=== PATIENT | female | born 1995 | race Caucasian/White ===

== ENCOUNTER → 2017-09-05 07:07 | Outpatient (CLI) | payer OTHER, SELFPAY ==
[2017-09-05 10:37] LABS: Absolute Lymphocyte Count 2.03 X10^3/ul (0.83-4.51); Absolute Neutrophil Count 3.4 X10^3/uL (2.0-7.7); Basophil# 0.02 X10^3/uL; Basophil% 0.3 % (0-1); Eosinophils% 1.6 % (0-5); Hematocrit 41.5 % (37-47); Hemoglobin 13.9 g/dl (12.0-15.0); Lymphocyte # 2.03 X10^3/ul (4.0); Lymphocyte % 32.6 % (19-41); Mean Corp Hgb Conc 33.5 g/gl (32-36); Mean Corpuscular Hgb 27.8 pg (27.0-32.0); Mean Platelet Vol. 9.6 fl (6.2-12.0); Monocyte# 0.68 X10^3/uL; Monocyte% 10.9 % (0-10); Neutrophil % 54.6 % (47-70); Platelet Count 314 K/mm3 (150-450); RBC Distribution Width CV 13.6 % (11.6-14.6); RBC Distribution Width SD 40.9 fl (35.1-43.9); White Blood Count 6.2 K/mm3 (4.4-11.0)
[2017-09-05 10:38] LABS: Erythrocyte Sedimentation Rate 4 mm/hr (0-20)
[2017-09-05 10:44] LABS: POSITIVE COUNT NO; POSITIVE DIFFERENTIAL NO; POSITIVE MORPHOLOGY NO
[2017-09-05 10:51] LABS: ALB/GLOB Ratio 1.2 RATIO (0.9-2.4); AST(SGOT) 14 U/L (15-37); Alanine Aminotransfer ALT/SGPT 20 U/L (13-56); Albumin, Serum 4.1 g/dL (3.2-5.0); Alkaline Phosphatase 21 U/L (45-117); Anion Gap 9 (5-15); BUN 9 mg/dL (7-18); BUN/Creat Ratio 12.3 RATIO (10-20); Chloride 107 mmol/L (98-107); Creatinine, Serum 0.73 mg/dL (0.55-1.02); EST Glomerular Filtration Rate 103 mL/min (>60); Est Glom Filt Rate - Afr Amer 125 mL/min (>60); Ferritin 32 ng/mL (8-252); Globulin 3.5 g/dL (2.2-4.2); Glucose 74 mg/dL (74-106); Iron Binding Capacity,Total 328 ug/dL (250-450); Potassium 3.7 mmol/L (3.5-5.1); Protein, Total 7.6 g/dL (6.4-8.2); Sodium Level 143 mmol/L (136-145); T4 Free Direct 1.12 ng/dL (0.76-1.46); Thyroid Stim Hormone (TSH) 1.62 uIU/mL (0.358-3.74)
[2017-09-06 10:05] LABS: Thyroid Peroxidase AB 13 IU/mL (0-34)
== END ==
PROVIDERS: Family Provider Family Medicine; PCP Family Medicine; Visit Provider Internal Medicine Endocrinology, Diabetes & Metabolism
DX: E04.9 Nontoxic goiter, unspecified (principal); E61.1 Iron deficiency
CPT/HCPCS: 36415; 80053; 82728; 83550; 84439; 84443; 84481; 85025; 85652; 86376

== ENCOUNTER → 2017-10-16 17:57 | Outpatient (CLI) | payer OTHER, SELFPAY ==
[2017-10-16 21:11] LABS: Chlamydia Trachomatis by PCR Negative (Negative); Neisserai gonorrhoeae by PCR Negative (Negative); Probe Check PASS; Sample Adequacy Control PASS; Specimen Processing Control PASS
[2017-10-23 14:58] LABS: HPV Reflexed? NOT INDICATED
== END ==
PROVIDERS: Visit Provider Nurse Practitioner Women's Health
DX: Z11.3 Encounter for screening for infections with a predominantly sexual mode of transmission (principal); Z12.4 Encounter for screening for malignant neoplasm of cervix
CPT/HCPCS: 87491; 87591; 88175; G0145

== ENCOUNTER → 2017-12-03 15:08 | Outpatient (CLI) | payer OTHER, SELFPAY | PROVIDERS: Family Provider Family Medicine; PCP Family Medicine; Visit Provider Nurse Practitioner Women's Health | DX: N89.8 Other specified noninflammatory disorders of vagina (principal) | CPT/HCPCS: 87070; 87077; 87205 ==

== ENCOUNTER → 2018-05-27 15:05 | Outpatient (CLI) | payer OTHER, SELFPAY ==
[2017-12-12 10:03] VITALS: BMI 31.4
--- NOTE | 2018-05-27 15:23 | CT_ITS ---
STUDY: CT MAXILLOFACIAL SINUSES REASON FOR EXAM: Female, 22 years old. Right-sided numbness/tingling RADIATION DOSAGE (If Supplied By Facility): CTDIvol = ( 33.06 ) mGy, DLP = ( 837.98 ) mGycm TECHNIQUE: The patient was scanned in a multi detector CT scanner. High resolution axial imaging was performed without the administration of intravenous contrast material. Sagittal and coronal images were reconstructed. Individualized dose optimization techniques were used for this CT. COMPARISON: None. FINDINGS: FRONTAL SINUSES: Normal aeration, without mucosal inflammatory disease. ETHMOIDAL SINUSES: Normal aeration, without mucosal inflammatory disease. MAXILLARY SINUSES: Mild mucosal thickening of the left maxillary antrum. SPHENOIDAL SINUSES: Normal aeration, without mucosal inflammatory disease. There is patency of the bilateral maxillary infundibuli with normal uncinate processes, ethmoid bullae, and hiatus semilunaris. Normal bilateral middle turbinates. Normal bilateral inferior turbinates. Normal midline nasal septum. There is patency of the bilateral nasal airways. The visualized osseous structures are normal. The visualized bilateral orbital contents are normal. The mandible and bilateral temporomandibular joints are intact. There are bilateral cervical lymph nodes. CT/Sinus/Facial Bone IMPRESSION: Mild chronic left maxillary sinus inflammation. Cervical lymph nodes likely due to lymphoid hyperplasia. Electronically Signed: Kortney Quintanilla MD at 6:12 EST , Service support ,
--- OUTSIDE RECORDS SUMMARY | 2018-07-30 03:34 | XMS RPT_ITS ---
:1995 Author Organization OHIP Support Name Relationship Address Phone DANIEL DICKENS Unavailable [address] + [place] [address] GILLIAN Unavailable [address] + [place] [address] DANIEL DICKENS Unavailable [address] + [place] [address] GILLIAN Unavailable [address] + [place] [address] DANIEL DICKENS Unavailable [address] + [place] [address] GILLIAN Unavailable [address] + [place] [address] DANIEL DICKENS Unavailable [address] + [place] [address] GILLIAN Unavailable [address] + [place] [address] DANIEL DICKENS Unavailable [address] + [place] [address] GILLIAN Unavailable [address] + [place] [address] DANIEL DICKENS Unavailable [address] + [place] [address] GILLIAN Unavailable [address] + [place] [address] DANIEL DICKENS Unavailable [address] + [place] [address] GILLIAN Unavailable [address] + [place] [address] DANIEL DICKENS Unavailable [address] + [place] [address] GILLIAN Unavailable [address] + [place] [address] DANIEL DICKENS Unavailable [address] + [place] [address] GILLIAN Unavailable [address] + [place] [address] DANIEL DICKENS Unavailable [address] + [place] [address] GILLIAN Unavailable [address] + [place] [address] Care Team Providers Name Role Phone Spencer Ramirez Attending Unavailable Spencer Ramirez Referring Unavailable Jolliff, Reyna Primary Care Unavailable Ortega, Teresa Attending Unavailable Jolliff, Reyna Referring Unavailable Jolliff, Reyna Primary Care Unavailable Ortega, Teresa Attending Unavailable Donna, Teresa Referring Unavailable Jolliff, Reyna Primary Care Unavailable Ortega, Teresa Attending Unavailable Jolliff, Reyna Referring Unavailable Ortega, Teresa Attending Unavailable Donna, Teresa Referring Unavailable Jolliff, Reyna Primary Care Unavailable Ortega, Teresa Attending Unavailable Jolliff, Reyna Referring Unavailable Jolliff, Reyna Primary Care Unavailable Raghunathan, Shannon N. Attending Unavailable Jolliff, Reyna Primary Care Unavailable Ortega, Teresa Attending Unavailable Jolliff, Reyna Referring Unavailable Ortega, Teresa Attending Unavailable Jolliff, Reyna Referring Unavailable Donna, Teresa Attending Unavailable Jolliff, Reyna Primary Care Unavailable Ortega, Teresa Referring Unavailable PROBLEMS PROBLEMS DATE TYPE CONDITION / CODE ATTENDING STATUS SOURCE 05/28/2018 Unknown N89.9 - Ortega, Teresa Active [facility] Community disorder of vagina, Hospital unspecified / Repository N89.9(ICD-10) 05/28/2018 Unknown N89.8 - Other Donna, Teresa Active [facility] specified Community noninflammatory Hospital disorders of vagina / Repository N89.8(ICD-10) 12/12/2017 Unknown Z30.431 - Encounter Donna, Teresa Active [facility] for routine checking [facility] of [facility] Hospital contraceptive device Repository / Z30.431(ICD-10) 12/03/2017 Unknown R10.2 - Pelvic and Ortega, Teresa Active [facility] perineal pain / Community R10.2(ICD-10) Hospital Repository 10/31/2017 Unknown Z30.430 - Encounter Donna, Teresa Active [facility] for insertion of [facility] intrauterine Hospital contraceptive device Repository / Z30.430(ICD-10) 10/17/2017 Unknown Z11.3 - Encounter for eTresa Vivas Active [facility] screening for Community infections with a Hospital predominantly sexual Repository mode of transmission / Z11.3(ICD-10) 10/17/2017 Unknown Z12.4 - Encounter for Teresa Vivas Active [facility] screening for Community malignant neoplasm of Hospital cervix / Repository Z12.4(ICD-10) PROCEDURES PROCEDURES No Procedure Records FoundRESULTS RESULTS Observed: 05/28/2018 Status: F Source: [place] CULTURE, GENITAL 1:24 PM [facility] COMPREHENSIVE REPOSITORY Reason for Exam: vaginal irritation Gram Stain Score = 1 Interpretation: 0-3 Normal, 4-6 Intermediate, 7-10 Positive BV Gram Stain 2+ White Blood Cells Rare Red Blood Cells 3+ Gram positive rods No Yeast Like Organisms Gent Cult Comp Normal vaginal virginia isolated. No yeast, Gardnerella, or Neisseria isolated. ORGANISM 1: Streptococcus group B Amount Growth Rare Performed By: #### M100.1600 #### [facility] [address] [place], [address] ELECTRICAL ENGINEER MEP OFFICE VISIT Observed: 05/28/2018 Status: F Source: [place] REPORT 9:51 AM [facility] REPOSITORY [facility] [address] [place] [address] OFFICE VISIT Date of Service: 05/28/18 MR#: [id number] Acct: [id number] Name: SYLVESTER DICKENS Rep #: [id number] : 1995 Provider: OLGA Vivas Age/Sex: 22/F Location[place] [facility] Status: Signed Intake Vital Signs05/28/18 Height 5 ft 4 in 05/28/18 Weight: 194 lb 8 oz 05/28/18 Body Mass Index (BMI) 33.3 05/28/18 Blood Pressure 110/78 Intake Visit Reasons: IRRITATION Management Supervisor Required: No Is patient in pain?: No Allergies No Known Allergies Allergy (Verified 05/28/18 09:29) Medications levonorgestrel 20 mcg/24 hr (5 years) intrauterine device 1 insert INTRAUTERINE ONCE 12/03/17 [History Confirmed 05/28/18] polycarbophil vaginal gel ea VAGINAL g 05/28/18 [History Confirmed 05/28/18] Is last menstrual period known: No Post menopausal: No Patient : No : No PFSH Medical History Celiac disease (Acute) Surgical History History of tonsillectomy and adenoidectomy (Acute) S/P bunionectomy (Acute) Family History Grandmother Breast cancer Cancer ovarian Grandfather Cancer lung Social History Smoking Status: Never smoker alcohol intake: current details: social substance use type: does not use caffeine: Yes what type of physical activity do you participate in: walking frequency: 3-4 times per week seatbelt use: always do you feel safe at home: Yes additional social history: Single- GILLIAN HPI IRRITATION: Details: SYLVESTER DICKENS is a 22 year old who presents for return of vaginal burning and irritation. States had URI and seen in urgent care and told have BV symptoms and given flagyl. States symptoms restart 3 days ago but improved today. Takes oral rephresh probiotic daily. Same sexual partner since STD screen Oct 2017. Denies other symptoms. Pregancy History 0 Elective abortions Hx Para Spontaneous abortions ROS Const Constitutional: Reports system reviewed and no additional complaints, except as docu GI GI: Denies abdominal pain or change in bowel habits : Reports as per HPI Exam Const General: cooperative, no acute distress Nutritional Appearance: well nourished General: bladder normal to palpation External Female Exam: normal external appearance, normal appearance of the urethra Urethra: normal appearance of the urethra Speculum Exam - Vagina: normal appearance of the vagina, nontender, no lesions, abnormal vaginal discharge yarbrough (watery), vaginal erythema Speculum Exam - Cervix: normal appearance of the cervix, other (smooth, nonfriable) Bimanual Exam- Vagina AND Uterus: bladder normal to palpation, normal bimanual exam, uterine size normal, uterine shape normal, uterine mobility normal, uterus non-tender Bimanual Exam- Adnexa, other: normal adnexae, no adnexal masses, adnexae non-tender Assessment AND Plan Problems 1. Vaginal irritation N89.8 Plan [place] BV and comp vaginal culture Reviewed TELECOMMUNICATIONS FACILITY EXAMINER skin care and A AND D ointment If again positive consider metrogel weekly as preventative Coding Level of Care Code Off vis,est,level 3 Diagnoses Vaginal irritation N89.8 05/28/18 0951 <Electronically signed by Teresa Vivsa NP-C> Date Teresa Vivas FIRE CONTROL OFFICER-C Cosigner Signature: Date (if applicable) CC: SINUS/FACIAL BONE Observed: 05/27/2018 Status: F Source: [place] 3:26 PM [facility] REPOSITORY [facility] Imaging Services [address] [place] [address] Sinus/Facial Bone MR#: [id number] Acct: [id number] Name: SYLVESTER DICKENS Rep #: [id number] : 1995 F 22 From: Kortney Quintanilla MD PCP: Reyna Guerrero MD Status: REG CLI Study: Sinus/Facial Bone Date of Exam: 05/27/18 Exam# [id number] Ordering Dr: Spencer Ramirez MD STUDY: CT MAXILLOFACIAL SINUSES REASON FOR EXAM: Female, 22 years old. Right-sided numbness/tingling RADIATION DOSAGE (If Supplied By Facility): CTDIvol = ( 33.06 ) mGy, DLP = ( 837.98 ) mGycm TECHNIQUE: The patient was scanned in a multi detector CT scanner. High resolution axial imaging was performed without the administration of intravenous contrast material. Sagittal and coronal images were reconstructed. Individualized dose optimization techniques were used for this CT. COMPARISON: None. FINDINGS: FRONTAL SINUSES: Normal aeration, without mucosal inflammatory disease. ETHMOIDAL SINUSES: Normal aeration, without mucosal inflammatory disease. MAXILLARY SINUSES: Mild mucosal thickening of the left maxillary antrum. SPHENOIDAL SINUSES: Normal aeration, without mucosal inflammatory disease. There is patency of the bilateral maxillary infundibuli with normal uncinate processes, ethmoid bullae, and hiatus semilunaris. Normal bilateral middle turbinates. Normal bilateral inferior turbinates. Normal midline nasal septum. There is patency of the bilateral nasal airways. The visualized osseous structures are normal. The visualized bilateral orbital contents are normal. The mandible and bilateral temporomandibular joints are intact. There are bilateral cervical lymph nodes. CT/Sinus/Facial Bone IMPRESSION: Mild chronic left maxillary sinus inflammation. Cervical lymph nodes likely due to lymphoid hyperplasia. Electronically Signed: Kortney Quintanilla MD at 6:12 EST , Service support , CC: Reyna Guerrero MD; Paulo Ramirez MD Budget Director: Signed ELECTRICAL ENGINEER MEP OFFICE VISIT Observed: 05/13/2018 Status: F Source: [place] REPORT 12:55 PM [facility] REPOSIT[facility] [address] [place] [address]. [address] [place] [address] OFFICE VISIT Date of Service: 10/16/17 MR#: [id number] Acct: [id number] Name: SYLVESTER DICKENS Rep #: [id number] : 1995 Provider: OLGA Vivas Age/Sex: 22/F Location[place] [facility] Status: Signed with Addenda ADDENDUM by OLGA Vivas on 05/13/18 at 1254 Addendum entered and electronically signed by BAHMAN Kapoor 05/13/18 12:54: Rectal exam was deferred. No masses palpated Assessment AND Plan Problems 1. Encounter for gynecological examination without abnormal finding Z01.419 2. Vaginal discharge N89.8 3. Contraception management Z30.9 Plan - BAHMAN Kapoor Completed breast and pelvic exam Reviewed diet and exercise Pap thin prep pap with reflex HPV GCC, trich and BV collected. Call only if positive Contraception Discussed insertion, benefits, risks and side effects of mirena IUD. Written information given. Cytotec Rx sent RTO onset of next menses Teresa Vivas BANDOLEER STRAIGHTENER STAMPER Orders Orders: 05/13/18 1255 <Electronically signed by Teresa RUGGIERO> Date Teresa Vivas cc: * Signed Intake Vital Signs10/16/17 Height 5 ft 4.75 in 10/16/17 Weight: 180 lb 2 oz 10/16/17 Body Mass Index (BMI) 30.2 10/16/17 Blood Pressure 110/70 Intake Visit Reasons: NEW annual, BC Consult Chief Complaint: Est annual, BC Consult and Irregular VB Management Supervisor Required: No Is patient in pain?: No Allergies No Known Allergies Allergy (Verified 10/16/17 13:12) Medications misoprostol 200 mcg tablet See Label Instructions .ROUTE .COMPLEX #4 tab 10/16/17 [Rx Confirmed 10/16/17] Is last menstrual period known: No Post menopausal: No Patient : No : No PFSH Medical History Celiac disease (Acute) Surgical History History of tonsillectomy and adenoidectomy (Acute) S/P bunionectomy (Acute) Family History Grandmother Breast cancer Cancer ovarian Grandfather Cancer lung Social History Smoking Status: Never smoker alcohol intake: current details: social substance use type: does not use caffeine: Yes what type of physical activity do you participate in: walking frequency: 3-4 times per week seatbelt use: always do you feel safe at home: Yes additional social history: Single- GILLIAN HPI NEW annual, BC Consult: Details: SYLVESTER DICKENS is a 22 year old who presents for new patient annual exam. Wants to consider mirena IUD. Having vaginal odor, new partner. Last PAP: unsure History of abnormal PAP: no Last mammogram: NA Female Reproductive History Cycle Length: 21-35 Control Method: condom Questions: Metorrhagia: No, Sexually active: Yes, Dyspareunia: No, PCB: No ROS Const Constitutional: Denies fatigue, weight gain or weight loss Cardio Card: Denies chest pain Resp Resp: Denies cough or shortness of breath with activity GI GI: Denies abdominal pain, constipation, change in stools, vomiting or bloating : Reports as per HPI; denies urinary frequency, pelvic pain, urinary urgency, vaginal discharge, vaginal itching, urinary incontinence or difficulty urinating Exam Const General: cooperative, healthy appearing, no acute distress, well developed Orientation: alert, oriented to person, oriented to place HENNJ Head: normal to inspection Neck Neck: normal visual inspection Thyroid: thyroid normal Lymphatic: no lymphadenopathy noted Chest Breast inspection: normal inspection of the breasts, normal inspection of the axillae Breast palpation: normal palpation of the breasts, normal palpation of the axillae, no axillary lymphadenopathy Resp Effort AND Inspection: normal respiratory effort Auscultation: clear to auscultation bilaterally Cardio Rate: regular rate Rhythm: regular rhythm GI Palpation: soft, nontender, no masses Rectal Exam: mass, deferred External Female Exam: normal external appearance, normal appearance of the urethra Urethra: normal appearance of the urethra, normal palpation Speculum Exam - Vagina: normal appearance of the vagina, normal vaginal discharge Speculum Exam - Cervix: normal appearance of the cervix, other (GCC, BV trich, pap with reflex HPV collected) Bimanual Exam- Vagina AND Uterus: normal bimanual exam, uterine size normal, uterine shape normal, uterus non-tender Bimanual Exam- Adnexa, other: normal adnexae, no adnexal masses, adnexae non-tender, pelvic support normal Pelvic Support: normal Neuro General: alert, oriented x3 Psych Affect: normal affect Results POCTRICVAG Office Trichomonas vaginalis Negative Last Edit by Leeanna Crespo on 10/16/17 14:25 POCBVBLUE Office BVBlue Test Negative Last Edit by Leeanna Crespo on 10/16/17 14:25 Assessment AND Plan Problems 1. Encounter for gynecological examination without abnormal finding Z01.419 2. Vaginal discharge N89.8 3. Contraception management Z30.9 Plan Completed breast and pelvic exam Reviewed diet and exercise Pap thin prep pap with reflex HPV GCC, trich and BV collected. Call only if positive Contraception Discussed insertion, benefits, risks and side effects of mirena IUD. Written information given. Cytotec Rx sent RTO onset of next menses Teresa Vivas BANDOLEER STRAIGHTENER STAMPER Orders Orders: Medications New: Coding Level of Care Code Off vis,new,prev 18-39yrs Diagnoses Encounter for gynecological examination without abnormal finding Z01.419 Gynecological examination findings: abnormal findings ABSENT Vaginal discharge N89.8 Contraception management Z30.9 10/16/17 1440 <Electronically signed by Teresa Vivas FIRE CONTROL OFFICER-C> Date Teresa Vivas FIRE CONTROL OFFICER-C Cosigner Signature: Date (if applicable) CC: PROGRESS Observed: 05/06/2018 Status: COMPLETED Source: [place] 5:09 PM [facility] REPOSITORY HNO ID: [id number] Author: Penelope Mcintyre Service: (none) Author Type: Nurse Practitioner Type: Progress Notes Filed: 05/06/2018 5:16 PM Note Text: Subjective HPI Pt presents with c/o nasal congestion and cough x 8 days. Denies fever, chills, myalgias, dyspnea, wheezing. Cough is frequent, moist, nonproductive. Intermittent coughing fits and chest tightness. Has been taking sudafed with minimal improvement. Pt also c/o recurrent BV sx. Was recently tested and treated for BV by TELECOMMUNICATIONS FACILITY EXAMINER. States sx improved some but did not resolve. Has intermittent vaginal itching and thin bishop vaginal discharge. Review of Systems Constitutional: Negative for chills and fever. HENT: Positive for congestion. Negative for ear discharge, ear pain, sinus pain, sore throat and tinnitus. Respiratory: Positive for cough. Negative for sputum production, shortness of breath and wheezing. Cardiovascular: Negative for chest pain. Genitourinary: Negative. Negative for dysuria, flank pain, frequency, hematuria and urgency. Skin: Negative for rash. Neurological: Negative for headaches. Objective Physical Exam Constitutional: She is oriented to person, place, and time and well-developed, well-nourished, and in no distress. No distress. HENT: Head: Normocephalic. Right Ear: Hearing, tympanic membrane, external ear and ear canal normal. Left Ear: Hearing, tympanic membrane, external ear and ear canal normal. Nose: Nose normal. Right sinus exhibits no maxillary sinus tenderness and no frontal sinus tenderness. Left sinus exhibits no maxillary sinus tenderness and no frontal sinus tenderness. Mouth/Throat: Uvula is midline, oropharynx is clear and moist and mucous membranes are normal. No oropharyngeal exudate, posterior oropharyngeal edema, posterior oropharyngeal erythema or tonsillar abscesses. Eyes: Pupils are equal, round, and reactive to light. Conjunctivae are normal. Right eye exhibits no discharge. Left eye exhibits no discharge. Neck: Neck supple. Cardiovascular: Normal rate, regular rhythm and normal heart sounds. Exam reveals no gallop and no friction rub. No murmur heard. Pulmonary/Chest: Effort normal and breath sounds normal. No accessory muscle usage. No tachypnea. No respiratory distress. She has no decreased breath sounds (CTA, good air movement throughout, no cough noted during exam.). She has no wheezes. She has no rhonchi. She has no rales. Lymphadenopathy: She has no cervical adenopathy. Neurological: She is alert and oriented to person, place, and time. Skin: Skin is warm. She is not diaphoretic. BP 110/68 Pulse 88 Temp 36.4 ?C (97.5 ?F) (Tympanic) Resp 18 Wt 86.2 kg (190 lb) LMP 04/22/2018 SpO2 98% BMI 32.61 kg/m? .Patient presents with: Sinus Problem: sinus pressure and drainage x 8 days Vaginal Problem: stinging and itching, discharge PAST MEDICAL HISTORY Diagnosis Date - Celiac disease PAST SURGICAL HISTORY Procedure Laterality Date - EGD W/O OR W/BRUSH/WASH 09/05/2012 EGD - EXTRACTION ERUPTED TOOTH/EXR 12/24/2013 - PAST SURGICAL HISTORY OF 2007 L bunion surgery - PAST SURGICAL HISTORY OF 1994 Tonsillectomy ALLERGIES Seasonal Allergies MEDICATIONS benzonatate (TESSALON PERLE) 100 mg capsule Take 1 capsule by mouth three times daily as needed. bifidobacteri bifid.and longum (FLORAJEN BIFIDOBLEND) 460 mg (9-1 bill.cell) cap Take 1 capsule by mouth once daily. guaiFENesin (MUCINEX) 600 mg 12 hr tablet Take 2 tablets by mouth twice daily. metroNIDAZOLE (FLAGYL) 250 mg tablet Take 2 tablets by mouth twice daily for 7 days. predniSONE (DELTASONE) 20 mg tablet Take 2 tablets by mouth once daily for 5 days. Take daily with food. FAMILY HISTORY Problem Relation Age of Onset - other (Healthy [Other]) Sister - other (Healthy [Other]) Brother - other (HLD [Other]) Father - other (HTN [Other]) Mother - other (HLD [Other]) Mother - other (Hypothyroidism [Other]) Mother Social History Substance Use Topics - Smoking status: Never Smoker - Smokeless tobacco: Never Used - Alcohol use No ASSESSMENT/PLAN: 1. Viral URI with cough - ICD9: 465.9, ICD10: J06.9, B97.89 (primary diagnosis) - Discussed viral etiology and rationale for treatment. - Symptomatic treatment with prn analgesia - Supportive care with fluids and rest - Follow up in 3-5 days if symptoms persist or sooner if worsening of symptoms - PREDNISONE 20 MG TABLET - BENZONATATE 100 MG CAPSULE - GUAIFENESIN ER 600 MG TABLET, EXTENDED RELEASE 12 HR 2. BV (bacterial vaginosis) - ICD9: 616.10, 041.9, ICD10: N76.0, B96.89 - BIFIDOBACTERIUM BIFIDUM AND LONGUM 460 MG (9-1 BILLION CELL) CAPSULE - METRONIDAZOLE 250 MG TABLET Instructed no alcoholic beverages while taking this medication. Instructed to f/u with TELECOMMUNICATIONS FACILITY EXAMINER if sx persist. The patient is instructed to return or seek emergency treatment if symptoms become worse or with any acute change in condition. The patient verbalizes understanding and is in agreement with plan of care. Penleope Mcintyre, RANJANA CNOV Observed: 05/06/2018 Status: COMPLETED Source: [place] 4:30 PM [facility] RE[facility] SYLVESTER DICKENS ([id number]) 1995 F Date Time Provider Department 05/06/18 4:30 PM PENELOPE MCINTYRE [facility] During your visit today, we recorded the following information about you: Temperature Pulse Respiration Blood pressure 97.5 degrees 88/minute 18/minute 110/68 Weight Last Period 86.2 kg 04/22/18 Penelope Mcintyre APRN.BANDOLEER STRAIGHTENER STAMPER 05/06/2018 5:16 PM Signed Subjective HPI Pt presents with c/o nasal congestion and cough x 8 days. Denies fever, chills, myalgias, dyspnea, wheezing. Cough is frequent, moist, nonproductive. Intermittent coughing fits and chest tightness. Has been taking sudafed with minimal improvement. Pt also c/o recurrent BV sx. Was recently tested and treated for BV by TELECOMMUNICATIONS FACILITY EXAMINER. States sx improved some but did not resolve. Has intermittent vaginal itching and thin bishop vaginal discharge. Review of Systems Constitutional: Negative for chills and fever. HENT: Positive for congestion. Negative for ear discharge, ear pain, sinus pain, sore throat and tinnitus. Respiratory: Positive for cough. Negative for sputum production, shortness of breath and wheezing. Cardiovascular: Negative for chest pain. Genitourinary: Negative. Negative for dysuria, flank pain, frequency, hematuria and urgency. Skin: Negative for rash. Neurological: Negative for headaches. Objective Physical Exam Constitutional: She is oriented to person, place, and time and well-developed, well-nourished, and in no distress. No distress. HENT: Head: Normocephalic. Right Ear: Hearing, tympanic membrane, external ear and ear canal normal. Left Ear: Hearing, tympanic membrane, external ear and ear canal normal. Nose: Nose normal. Right sinus exhibits no maxillary sinus tenderness and no frontal sinus tenderness. Left sinus exhibits no maxillary sinus tenderness and no frontal sinus tenderness. Mouth/Throat: Uvula is midline, oropharynx is clear and moist and mucous membranes are normal. No oropharyngeal exudate, posterior oropharyngeal edema, posterior oropharyngeal erythema or tonsillar abscesses. Eyes: Pupils are equal, round, and reactive to light. Conjunctivae are normal. Right eye exhibits no discharge. Left eye exhibits no discharge. Neck: Neck supple. Cardiovascular: Normal rate, regular rhythm and normal heart sounds. Exam reveals no gallop and no friction rub. No murmur heard. Pulmonary/Chest: Effort normal and breath sounds normal. No accessory muscle usage. No tachypnea. No respiratory distress. She has no decreased breath sounds (CTA, good air movement throughout, no cough noted during exam.). She has no wheezes. She has no rhonchi. She has no rales. Lymphadenopathy: She has no cervical adenopathy. Neurological: She is alert and oriented to person, place, and time. Skin: Skin is warm. She is not diaphoretic. BP 110/68 Pulse 88 Temp 36.4 ?C (97.5 ?F) (Tympanic) Resp 18 Wt 86.2 kg (190 lb) LMP 04/22/2018 SpO2 98% BMI 32.61 kg/m? .Patient presents with: Sinus Problem: sinus pressure and drainage x 8 days Vaginal Problem: stinging and itching, discharge PAST MEDICAL HISTORY Diagnosis Date - Celiac disease PAST SURGICAL HISTORY Procedure Laterality Date - EGD W/O OR W/BRUSH/WASH 09/05/2012 EGD - EXTRACTION ERUPTED TOOTH/EXR 12/24/2013 - PAST SURGICAL HISTORY OF 2007 L bunion surgery - PAST SURGICAL HISTORY OF 1994 Tonsillectomy ALLERGIES Seasonal Allergies MEDICATIONS benzonatate (TESSALON PERLE) 100 mg capsule Take 1 capsule by mouth three times daily as needed. bifidobacteri bifid.and longum (FLORAJEN BIFIDOBLEND) 460 mg (9-1 bill.cell) cap Take 1 capsule by mouth once daily. guaiFENesin (MUCINEX) 600 mg 12 hr tablet Take 2 tablets by mouth twice daily. metroNIDAZOLE (FLAGYL) 250 mg tablet Take 2 tablets by mouth twice daily for 7 days. predniSONE (DELTASONE) 20 mg tablet Take 2 tablets by mouth once daily for 5 days. Take daily with food. FAMILY HISTORY Problem Relation Age of Onset - other (Healthy [Other]) Sister - other (Healthy [Other]) Brother - other (HLD [Other]) Father - other (HTN [Other]) Mother - other (HLD [Other]) Mother - other (Hypothyroidism [Other]) Mother Social History Substance Use Topics - Smoking status: Never Smoker - Smokeless tobacco: Never Used - Alcohol use No ASSESSMENT/PLAN: 1. Viral URI with cough - ICD9: 465.9, ICD10: J06.9, B97.89 (primary diagnosis) - Discussed viral etiology and rationale for treatment. - Symptomatic treatment with prn analgesia - Supportive care with fluids and rest - Follow up in 3-5 days if symptoms persist or sooner if worsening of symptoms - PREDNISONE 20 MG TABLET - BENZONATATE 100 MG CAPSULE - GUAIFENESIN ER 600 MG TABLET, EXTENDED RELEASE 12 HR 2. BV (bacterial vaginosis) - ICD9: 616.10, 041.9, ICD10: N76.0, B96.89 - BIFIDOBACTERIUM BIFIDUM AND LONGUM 460 MG (9-1 BILLION CELL) CAPSULE - METRONIDAZOLE 250 MG TABLET Instructed no alcoholic beverages while taking this medication. Instructed to f/u with TELECOMMUNICATIONS FACILITY EXAMINER if sx persist. The patient is instructed to return or seek emergency treatment if symptoms become worse or with any acute change in condition. The patient verbalizes understanding and is in agreement with plan of care. Penelope Mcintyre, BANDOLEER STRAIGHTENER STAMPER Referring Provider: SELF [200] Allergies As of Date: 05/06/2018 Noted Allergy Reaction SEASONAL ALLERGIES 10/30/2013 14 - Other: See Comments Comments: Headache, runny nose, eyes Date Reviewed: 05/06/2018 Reviewed by: Chantell Scruggs Ma - Fully Assessed Reason for Visit: Sinus Problem [99] Cmt: sinus pressure and drainage x 8 days Vaginal Problem [117] Cmt: stinging and itching, discharge Reason For Visit History Recorded Primary Visit Diagnosis:Viral URI with cough [J06.9, B97.89] Other Visit Diagnosis:BV (bacterial vaginosis) [N76.0, B96.89] Order(s):bifidobacteri bifid.and longum (FLORAJEN BIFIDOBLEND) 460 mg (9-1 bill.cell) capTake 1 capsule by mouth once daily.Disp: 30 capsuleRfl: 1 metroNIDAZOLE (FLAGYL) 250 mg tabletTake 2 tablets by mouth twice daily for 7 days.Disp: 28 tabletRfl: 0 predniSONE (DELTASONE) 20 mg tabletTake 2 tablets by mouth once daily for 5 days. Take daily with food.Disp: 10 tabletRfl: 0 benzonatate (TESSALON PERLE) 100 mg capsuleTake 1 capsule by mouth three times daily as needed.Disp: 60 capsuleRfl: 0 guaiFENesin (MUCINEX) 600 mg 12 hr tabletTake 2 tablets by mouth twice daily.Disp: 60 tabletRfl: 0 Prescriptions as of 05/06/2018 Sig: BENZONATATE 100 MG CAPSULE Take 1 capsule by mouth three* BIFIDOBACTERIUM BIFIDUM AND L* Take 1 capsule by mouth once * GUAIFENESIN ER 600 MG TABLET,* Take 2 tablets by mouth twice* METRONIDAZOLE 250 MG TABLET Take 2 tablets by mouth twice* PREDNISONE 20 MG TABLET Take 2 tablets by mouth once * Problem List As Of Date 05/06/2018 Noted Resolved Celiac disease [K90.0] Prescriptions ordered this encounter Disp Refills Start End BIFIDOBACTERIUM BIFIDUM AND LONGUM 4* 30 c* 1 05/06/2018 Route: ORAL Sig: Take 1 capsule by mouth once daily. METRONIDAZOLE 250 MG TABLET 28 t* 0 05/06/2018 05/13/2018 Route: ORAL Sig: Take 2 tablets by mouth twice daily for 7 days. PREDNISONE 20 MG TABLET 10 t* 0 05/06/2018 05/11/2018 Route: ORAL Sig: Take 2 tablets by mouth once daily for 5 days. Take daily with food. BENZONATATE 100 MG CAPSULE 60 c* 0 05/06/2018 Route: ORAL Sig: Take 1 capsule by mouth three times daily as needed. GUAIFENESIN ER 600 MG TABLET, EXTEND* 60 t* 0 05/06/2018 Route: ORAL Sig: Take 2 tablets by mouth twice daily. Encounter Status:Closed by PENELOPE MCINTYRE CNP on 05/06/18 ELECTRICAL ENGINEER MEP OFFICE VISIT Observed: 12/12/2017 Status: F Source: [place] REPORT 10:23 AM [facility] [address] [place] [address] OFFICE VISIT Date of Service: 12/12/17 MR#: [id number] Acct: [id number] Name: SYLVESTER DICKENS Rep #: [id number] : 1995 Provider: [place] Vivas Age/Sex: 22/F [place] [facility] [place]: Signed Intake Vital Signs12/12/17 Height 5 ft 4 in 12/12/17 Weight: 183 lb 4 oz 12/12/17 Body Mass Index (BMI) 31.4 12/12/17 Blood Pressure 112/77 Intake Visit Reasons: 6 WEEK MIRENA FOLLOW UP Management Supervisor Required: No Is patient in pain?: No Allergies No Known Allergies Allergy (Verified 12/12/17 10:05) Medications levonorgestrel 20 mcg/24 hr (5 years) intrauterine device 1 insert INTRAUTERINE ONCE 12/03/17 [History Confirmed 12/12/17] metronidazole 500 mg tablet 500 mg PO BID #14 tab 12/04/17 [Rx Confirmed 12/12/17] Post menopausal: No Patient : No : No PFSH Medical History Celiac disease (Acute) Surgical History History of tonsillectomy and adenoidectomy (Acute) S/P bunionectomy (Acute) Family History Grandmother Breast cancer Cancer ovarian Grandfather Cancer lung Social History Smoking Status: Never smoker alcohol intake: current details: social substance use type: does not use caffeine: Yes what type of physical activity do you participate in: walking frequency: 3-4 times per week seatbelt use: always do you feel safe at home: Yes additional social history: Single- GILLIAN HPI 6 WEEK MIRENA FOLLOW UP: Details: SYLVESTER DICKENS is a 22 year old who presents for follow up mirena IUD placed 10/31/17. She was seen in office 2 weeks ago for vaginal pain and odor. Dx BV and Rx flagyl. States doing well now. Pregancy History 0 Elective abortions Hx Para Spontaneous abortions Exam Speculum Exam - Vagina: normal appearance of the vagina Speculum Exam - Cervix: normal appearance of the cervix (iud strings noted at os) Bimanual Exam- Vagina AND Uterus: normal bimanual exam Bimanual Exam- Adnexa, other: normal adnexae Assessment AND Plan Problems 1. IUD check up Z30.431 Plan Properly placed mirena IUD RTO prn, annual exam Coding Level of Care Code Off vis,est,level 3 Diagnoses IUD check up Z30.431 12/12/17 1023 <Electronically signed by Teresa RUGGIERO> Date Teresavioleta Vivas BAHMAN Jaimes Signature: Date (if applicable) CC: Observed: 12/03/2017 Status: F Source: [place] CULTURE, GENITAL 3:51 PM [facility] REPOSITORY Reason for Exam: vaginal odor Gram Stain Score = 7 Interpretation: 0-3 Normal, 4-6 Intermediate, 7-10 Positive BV Gram Stain 1+ White Blood Cells 4+ Gram negative rods 2+ Gram positive rods Gent Cult Comp NEISSERIA GONORRHOEAE is NOT isolated. Group B Beta Streptococcus is not isolated. Culture exhibits no growth of Yeast-like organisms. ORGANISM 1: Gardnerella vaginalis Amount Growth 3+ Performed By: #### M100.1600 #### [facility] [address] [place], [address] ELECTRICAL ENGINEER MEP OFFICE VISIT Observed: 12/03/2017 Status: F Source: [place] REPORT 1:51 PM [facility] REPOSITORY [facility] [address] [place] [address] OFFICE VISIT Date of Service: 12/03/17 MR#: [id number] Acct: [id number] Name: SYLVESTER DICKENS Rep #: [id number] : 1995 Provider: OLGA Vivas Age/Sex: 22/F [place] [facility] Status: Signed Intake Vital Signs12/03/17 Height 5 ft 4 in 12/03/17 Weight: 185 lb 4 oz 12/03/17 Body Mass Index (BMI) 31.8 12/03/17 Blood Pressure 110/74 Intake Visit Reasons: IUD discomfort Chief Complaint: IUD discomfort Management Supervisor Required: No Is patient in pain?: Yes Allergies No Known Allergies Allergy (Verified 12/03/17 13:31) Medications levonorgestrel 20 mcg/24 hr (5 years) intrauterine device 1 insert INTRAUTERINE ONCE 12/03/17 [History Confirmed 12/03/17] Is last menstrual period known: No Post menopausal: No Patient : No : No [facility] Medical History Celiac disease (Acute) Surgical History History of tonsillectomy and adenoidectomy (Acute) S/P bunionectomy (Acute) Family History Grandmother Breast cancer Cancer ovarian Grandfather Cancer lung Social History Smoking Status: Never smoker alcohol intake: current details: social substance use type: does not use caffeine: Yes what type of physical activity do you participate in: walking frequency: 3-4 times per week seatbelt use: always do you feel safe at home: Yes additional social history: Single- GILLIAN HPI IUD discomfort: Details: SYLVESTER DICKENS is a 22 year old who presents for pelvic pain X 1 week and was having odor. Had mirena IUD placed 10/31. Has spotting and cramping X 3 days after. She was then good until last week when started menses and then with dull cramping pain and some sharp stabbing pain. No bleeding now. Had odor for a couple of days but has now resolved. Same sexual partner. Pregancy History 0 Elective abortions Hx Para Spontaneous abortions Exam External Female Exam: normal external appearance, normal appearance of the urethra Urethra: normal appearance of the urethra Speculum Exam - Vagina: normal appearance of the vagina, normal vaginal discharge Speculum Exam - Cervix: normal appearance of the cervix (iud strings noted at os), other (DEVANTE BV and comp vag culture collected) Bimanual Exam- Vagina AND Uterus: normal bimanual exam, uterine size normal, uterus non-tender Bimanual Exam- Adnexa, other: normal adnexae, no adnexal masses, adnexae non-tender Assessment AND Plan Problems 1. IUD check up Z30.431 2. Pelvic pain in female R10.2 3. Vaginal odor N89.8 Plan DEVANTE BV and comp vaginal culture-call only if positive Ultrasound Probably normal with new IUD Orders Orders: Coding Level of Care Code Off vis,est,level 3 Diagnoses IUD check up Z30.431 Pelvic pain in female R10.2 Vaginal odor N89.8 12/03/17 1351 <Electronically signed by Teresa RUGGIERO> Date Teresa RUGGIERO Cosigner Signature: Date (if applicable) CC: ELECTRICAL ENGINEER MEP OFFICE VISIT Observed: 10/31/2017 Status: F Source: [place] REPORT 4:39 PM [facility] [address] [place] [address] OFFICE VISIT Date of Service: 10/31/17 MR#: [id number] Acct: [id number] Name: SYLVESTER DICKENS Rep #: [id number] : 1995 Provider: OLGA Vivas Age/Sex: 22/F Location[place] [facility] Status: Signed Intake Intake Visit Reasons: MIRENA INSERTION Allergies No Known Allergies Allergy (Verified 10/16/17 13:12) levonorgestrel 1 insert Intrauterine ONCE PFSH PFSH Medical History Celiac disease (Acute) Surgical History History of tonsillectomy and adenoidectomy (Acute) S/P bunionectomy (Acute) Family History Grandmother Breast cancer Cancer ovarian Grandfather Cancer lung Social History Smoking Status: Never smoker alcohol intake: current details: social substance use type: does not use caffeine: Yes what type of physical activity do you participate in: walking frequency: 3-4 times per week seatbelt use: always do you feel safe at home: Yes additional social history: Single- GILLIAN HPI MIRENA INSERTION: Details: SYLVESTER DICKENS is a 22 year old who presents for insertion mirena IUD Office Procedures Mirena IUD IUD GC/Chlamydia:: done Test: Yes Negative Consent Signed: Yes Time out checklist: patient, procedure, site marked/identified, positioning of patient, supplies available, allergies confirmed, team agrees on procedure IUD: Yes Mirena Time out time: 16:29 Details: Sign in Communication: Completed Sign out documentation: Completed The uterus sounded to 7 cm. After prepping the cervix with betadine and using sterile technique, the cervix was grasped with a single tooth tenaculum and the IUD was inserted without difficulty and the string was cut to 3cm from the external os of the cervix. All instruments were removed from the vagina and excellent hemostasis was noted. Procedure Summary: patient tolerated the procedure well without complication. Office Meds levonorgestrel Performing Provider: BAHMAN Kapoor Documented (not given) by: BAHMAN Kapoor on 10/31/17 16:28 Dose Route Admin Location Lot Number Expiration Date NDC Direct Service Professional 1 insert Intrauterine Assessment AND Plan Problems 1. Encounter for insertion of mirena IUD Z30.430 Plan Reviewed S AND S infection No tampons, intercourse X 3 days Condoms X 2 weeks RTO 6 weeks Orders Orders: Medications New: Discontinued: misoprostol (Cytotec) Discontinued Reason:200 mcg 2 tab po night prior to insertion and Order Completed repeat 12 hour later Coding Level of Care Code No Charge Diagnoses Encounter for insertion of mirena IUD Z30.430 Additional Codes IUD (46894) 10/31/17 1639 <Electronically signed by Teresa RUGGIERO> Date Teresa RUGGIERO Cosigner Signature: Date (if applicable) CC: CT/NG [facility] BY PCR Collected: 10/16/2017 Status: F Source: [place] 6:04 PM [facility] REPOSITORY TYPE CODE TESTS RESULT OUT OF RANGE REFERENCE UNITS LAB L8200.2100 Negative Normal Chlam Negative Trac PCR LAB L8200.2200 Negative Normal NG by Negative PCR Performed By: #### L8200.1999 #### [facility] [address] [place], [address] PAP I-G W/RFX Collected: 10/16/2017 Status: F Source: [place] HRHPV-APTIMA 6:04 PM [facility] REPOSITORY Order Comment: CYTOLOGY INFORMATION: - CLINICAL INFORMATION: ANNUAL - DATE LMP/MENOPAUSE: LMP NOT GIVEN - COLLECTION VIAL: Thin Prep Vial - TELECOMMUNICATIONS FACILITY EXAMINER SOURCE: CERVICAL - COLLECTION TECHNIQUE: BRUSH/SPATULA Specimen Comment: [id number] Specimen Comment: No. of containers..01 ThinPrep Vial TYPE CODE TESTS RESULT OUT OF RANGE REFERENCE UNITS LAB L7400.0800 . Normal DIAGN Comment Result Comment: NEGATIVE FOR INTRAEPITHELIAL LESION AND MALIGNANCY. LAB L7400.0900 . Normal ADEQ Comment Result Comment: Satisfactory for evaluation. Endocervical and/or squamous metaplastic cells (endocervical component) are present. LAB L7400.1400 . Normal PERFORM Comment Result Comment: Nemo Verma, Abstract Manager (ASCP) LAB L7400.2575 . Normal TEST METHOD Comment Result Comment: This liquid based ThinPrep(R) pap test was screened with the use of an image guided system. LAB L7400.2600 . Normal . COMM LAB L7400.2700 . Normal PAPSMR Comment Result Comment: The Pap smear is a screening test designed to aid in the detection of premalignant and malignant conditions of the uterine cervix. It is not a diagnostic procedure and should not be used as the sole means of detecting cervical cancer. Both false-positive and false-negative reports do occur. LAB L7400.2800 . Normal HPV RFLX Comment Result Comment: The HPV DNA reflex criteria were not met with this specimen result therefore, no HPV testing was performed. Performed at: - [facility] [id number] Logistics Officer: Gloria Garibay MD, Phone: [phone] Performed By: #### L7400.0353 #### [facility] (refer to report for specific site) refer to report for address and phone number ERYTHROCYTE SED RATE Collected: 09/05/2017 Status: F Source: [place] 7:18 AM [facility] REPOSITORY TYPE CODE TESTS RESULT OUT OF RANGE REFERENCE UNITS LAB L102.0000 0-20 mm/hr Normal SED RATE 4 Performed By: #### L101.9900, L100.0100 #### [facility] [address] [place], [address] CBC W/DIFF, AUTOMATED Collected: 09/05/2017 Status: F Source: [place] 7:18 AM [facility] REPOSITORY TYPE CODE TESTS RESULT OUT OF RANGE REFERENCE UNITS LAB L100.1000 4.4-11.0 K/mm3 Normal WBC 6.2 LAB L100.1200 4.2-5.4 M/mm3 Normal RBC 5.00 LAB L100.1300 12.0-15.0 g/dl Normal HGB 13.9 LAB L100.1400 37-47 % Normal HCT 41.5 LAB L100.1500 81-99 fL Normal MCV 83.0 LAB L100.1600 27.0-32.0 pg Normal MCH 27.8 LAB L100.1700 32-36 g/gl Normal MCHC 33.5 LAB L100.1810 11.6-14.6 % Normal RDW CV 13.6 LAB L100.1820 35.1-43.9 fl Normal RDW SD 40.9 LAB L100.1900 150-450 K/mm3 Normal PLT 314 LAB L100.2000 6.2-12.0 fl Normal MPV 9.6 LAB L100.2100 47-70 % Normal NEUT% 54.6 LAB L100.2200 19-41 % Normal LY% 32.6 LAB L100.2300 0-10 % High MONO% 10.9 LAB L100.2400 0-5 % Normal EO% 1.6 LAB L100.2500 0-1 % Normal BASO% 0.3 LAB L100.2550 0.0-0.9 % Normal IM GRAN % 0.000 Result Comment: IG% - Immature Granulocytes (promyelocytes, myelocytes and metamyelocytes) > 1% indicates that a LEFT SHIFT is Present. LAB L100.2620 2.0-7.7 X10 3/uL Normal Absolute Neut 3.4 LAB L100.2720 0.83-4.51 X10 3/ul Normal Absolute Lymph 2.03 Performed By: #### L101.9900, L100.0100 #### [facility] [address] [place], [address] COMPREHENSIVE METABOLIC Collected: 09/05/2017 Status: F Source: [place] PROFIL 7:18 AM [facility] REPOSIT[facility] TYPE CODE TESTS RESULT OUT OF RANGE REFERENCE UNITS LAB L501.0100 74-106 mg/dL Normal GLU 74 Result Comment: Please note revised GLUCOSE reference range effective 2017. LAB L501.1000 7-18 mg/dL Normal BUN 9 LAB L501.1100 0.55-1.02 mg/dL Normal CREAT,SERUM 0.73 Result Comment: The validity of the calculated GFR AND GFRAA in patients over 70 years has not been determined. Clinical correlation is essential. LAB L501.1110 >60 mL/min Normal EST GFR 103 Result Comment: Non- GFR Calc LAB L501.1115 >60 mL/min Normal EST GFR - AA 125 Result Comment: GFR Calc LAB L501.1300 10-20 RATIO Normal BUN/CRE 12.3 LAB L501.1500 6.4-8.2 g/dL T Normal PROT 7.6 LAB L501.1800 3.2-5.0 g/dL Normal ALB 4.1 LAB L501.1950 2.2-4.2 g/dL Normal GLOB 3.5 LAB L501.2000 0.9-2.4 RATIO Normal A/G 1.2 LAB L501.2200 8.5-10.1 mg/dL CA Normal 9.0 LAB L501.4100 15-37 U/L Low AST 14 LAB L501.4305 45-117 U/L Low ALK P 21 LAB L501.4405 13-56 U/L Normal ALT 20 LAB L501.4600 0.20-1.00 mg/dL T Normal BILI 0.70 LAB L501.5300 136-145 mmol/L NA Normal 143 LAB L501.5600 3.5-5.1 mmol/L K Normal 3.7 LAB L501.5900 98-107 mmol/L CL Normal 107 LAB L501.6100 21.0-32.0 mmol/L Normal CO2 27.0 LAB L501.6200 5-15 Normal GAP 9 Performed By: #### L500.4050, L501.33254, L501.9520, L503.6075, L503.6550, L506.0400 #### [facility] [address] [place], [address] FREE T3 Collected: 09/05/2017 Status: F Source: [place] 7:18 AM [facility] REPOS[facility]ORY TYPE CODE TESTS RESULT OUT OF RANGE REFERENCE UNITS LAB L501.66309 2.18-3.98 pg/mL Normal FREE T3 3.0 Performed By: #### L500.4050, L501.65250, L501.9520, L503.6075, L503.6550, L506.0400 #### [facility] [address] [place], [address] THYROID STIM HORMONE Collected: 09/05/2017 Status: F Source: [place] (TSH) 7:18 AM [facility] REPOSITORY TYPE CODE TESTS RESULT OUT OF RANGE REFERENCE UNITS LAB L501.9520 0.358-3.74 uIU/mL Normal TSH 1.62 Performed By: #### L500.4050, L501.42728, L501.9520, L503.6075, L503.6550, L506.0400 #### [facility] [address] [place], [address] IRON BINDING Collected: 09/05/2017 Status: F Source: [place] CAPACITY,TOTAL 7:18 AM [facility] REPOSITORY TYPE CODE TESTS RESULT OUT OF RANGE REFERENCE UNITS LAB L503.6075 250-450 ug/dL Normal TIBC 328 Performed By: #### L500.4050, L501.63887, L501.9520, L503.6075, L503.6550, L506.0400 #### [facility] [address] [place], [address] FERRITIN Collected: 09/05/2017 Status: F Source: [place] 7:18 AM [facility] RE[facility] TYPE CODE TESTS RESULT OUT OF RANGE REFERENCE UNITS LAB L503.6550 8-252 ng/mL Normal FERRITIN 32 Performed By: #### L500.4050, L501.48889, L501.9520, L503.6075, L503.6550, L506.0400 #### [facility] [address] [place], [address] T4 FREE DIRECT Collected: 09/05/2017 Status: F Source: [place] 7:18 AM [facility] REPOSITORY TYPE CODE TESTS RESULT OUT OF RANGE REFERENCE UNITS LAB L506.0400 0.76-1.46 ng/dL Normal T4 FREE 1.12 DIRECT Performed By: #### L500.4050, L501.49526, L501.9520, L503.6075, L503.6550, L506.0400 #### [facility] [address] [place], [place], [address] THYROID PEROXIDASE AB Collected: 09/05/2017 Status: F Source: [place] 7:18 AM [facility] REPOS[facility] TYPE CODE TESTS RESULT OUT OF RANGE REFERENCE UNITS LAB L3300.6900 0-34 IU/mL Normal TPO AB 13 6676 Result Comment: Performed at: [facility] [id number] Logistics Officer: Santana Farooq PhD, Phone: [phone] Performed By: #### L3300.6900 #### [facility] (refer to report for specific site) refer to report for address and phone number ALLERGIES ALLERGIES DATE TYPE / CODE NAME / CODE REACTION SEVERITY SOURCE 05/28/2018 Drug No Known Unknown [facility] Allergy/416 Allergies/V55607 [facility] [id number](SNOM 0388(RXNORM) Repository ED CT) 10/30/2013 Environ/420 SEASONAL OTHER: SEE C [facility] 113133(SNOM ALLERGIES [facility] [place] ED CT) Repository ENCOUNTERS ENCOUNTERS ADMIT/DISCHARGE ACCOUNT ADMITTING ENCOUNTER LOCATION SOURCE NUMBER CLASS 05/28/2018 [id number] Ambulatory [facility] ing:LABSPEC Repository 05/28/2018/05/28/19 [id number] Ambulatory BMSBuilding:[address] [facility] Repository 05/27/2018 [id number] Ambulatory [facility] ing:CT Repository 05/06/2018/05/08/19 [id number] Ambulatory [address] [place] Repository 12/12/2017/12/13/19 [id number] Ambulatory BMSBuilding:[address] Repository 12/03/2017 [id number] Ambulatory [facility] ing:LABSPEC Repository 12/03/2017/12/04/19 [id number] Ambulatory BMSBuilding:[place] [address] [place] Repository 10/31/2017/11/01/19 [id number] Ambulatory BMSBuilding:B [place] [address] [place] Repository 10/16/2017 [id number] Ambulatory [facility] ing:LABSPEC Repository 10/16/2017/10/17/19 [id number] Ambulatory BMSBuilding:B [place] [address] [place] Repository 09/05/2017 [id number] Ambulatory [facility] ing:MTLAB Repository PAYERS PAYERS ENCOUNTER GUARANTOR PAYER SUBSCRIBER SOURCE 05/28/2018 SYLVESTER Pina Primary [address] [id number] STOCK Insurance:AETNAPolicy HARTNICOLEERDOB: [facility] Number: [id number] [id number] Repository [address]l: 330) Date:[id number] [phone] () [place] [address]AK: 05/28/2018 Secondary NOT GIVENUNK [place] Insurance:SELF PAY [facility] Number: Effective Repository Date:2018-05-28 05/28/2018 SYLVESTER Pina Primary D[address]EL [address] [id number] STOCK Insurance:AETNAPolicy HARTZLERDOB: [facility] Number: [id number], [place] [id number] Repository [address]Rso: 330) Date:8914-71-13GN [phone] () [address] [address]TG: 05/28/2018 Secondary NOT GIVENUNK [place] Insurance:SELF PAY [facility] Number: Effective Repository Date:2018-05-28 05/27/2018 SYLVESTER Pina Primary DANIEL [id number] STOCK Insurance:AETNAPolicy HARTZLERDOB: [facility] Number: [id number], [place] [id number] Repository [address]Ogu: 330) Date:7829-57-53AS [phone] () [place], [place] [address]VY: 05/27/2018 Secondary TEEKA T [place] Insurance:[facility] HART[facility]LERDOB[facility] [id number] [id number] Repository Date:2018-05-22 05/27/2018 Tertiary NOT GIVENUNK [place] Insurance:SELF PAY [facility] Hospital Number: Effective Repository Date:2018-05-22 12/12/2017 [facility] Primary DANIEL Napoles [id number] STOCK Insurance:AETNAPolicy HARTZLERDOB: Community TICHNOR Number: [id number], [place] [id number] Repository [address]Gvj: (330) Date:5620-74-75[phone] () [id number] [address]AX: 12/12/2017 Secondary NOT GIVENUNK [place] Insurance:SELF PAY [facility] Effective Rep[facility] Date:2017-12-12 12/03/2017 [facility] Primary Daniel Napoles [id number] STOCK Insurance:AETNAPolicy HartzlerDOB: Community AGUILAR Number: [id number], [place] [id number] Repository [address]Rjc: (330) Date:1074-55-73[phone] () [id number], [place] [address]DO: 12/03/2017 Secondary NOT GIVENUNK [place] Insurance:SELF PAY [facility] Effective Repository Date:2017-12-03 12/03/2017 [facility] Primary Daniel Napoles [id number] STOCK Insurance:AETNAPolicy HartzlerDOB: Community AGUILAR Number: [id number], [place] [id number] Repository [address]Des: (330) Date:4107-56-38[phone] (HP) [id number] [place] [address]ZR: 12/03/2017 Secondary NOT GIVENUNK [place] Insurance:SELF PAY [facility] Number: Effective Repository Date:2017-11-30 10/31/2017 [facility] Daniel Napoles [id number] STOCK Insurance:AETNAPolicy HartzlerDOB: Community AGUILAR Number: [id number], [place] [id number] Repository [address]Hqf: (330) Date:6297-34-30KM [phone] (HP) [id number] [place] [address]ZE: 10/31/2017 Secondary NOT GIVENUNK [place] Insurance:SELF PAY [facility] Number: Effective Repository Date:2017-10-31 10/16/2017 [facility] Primary Daniel Napoles [id number] STOCK Insurance:AETNAPolicy HartzlerDOB: Community AGUILAR Number: [id number], [place] [id number] Repository [address]Pzo: (330) Date:8866-89-25[phone] (HP) [id number] [place] [address]WN: 10/16/2017 Secondary NOT GIVENUNK [place] Insurance:SELF PAY [facility] Number: Effective Repository Date:2017-10-16 10/16/2017 [facility] Primary Daniel Napoles [id number] STOCK Insurance:AETNAPolicy HartzlerDOB: Community AGUILAR Number: [id number], [place] [id number] Repository [address]Suf: (330) Date:6124-02-62ET [phone] (HP) [id number] [place] [address]WL: 10/16/2017 Secondary NOT GIVENUNK [place] Insurance:SELF PAY [facility] Number: Effective Repository Date:2017-10-16 09/05/2017 [id number] STOCK Insurance:AETRhonda FloresB: [facility] Number: [id number], [place] [id number] Repository [address]Ukw: 330) Date:0888-45-55YH [phone] ( [id number] [place] [address]KP: 09/05/2017 Secondary NOT GIVENJOSE MARTIN [place] Insurance:SELF PAY [facility] Number: Effective Repository Date:2017-09-05
== END ==
PROVIDERS: Family Provider Family Medicine; PCP Family Medicine; Referring Provider Otolaryngology; Visit Provider Otolaryngology
DX: J32.9 Chronic sinusitis, unspecified (principal)
CPT/HCPCS: 70486

== ENCOUNTER → 2018-05-28 12:21 | Outpatient (CLI) | payer OTHER, SELFPAY ==
[2018-05-28 09:51] VITALS: BMI 31.4
--- OUTSIDE RECORDS SUMMARY | 2018-07-30 15:59 | XMS RPT_ITS ---
:1995 Author Organization OHIP Support Name Relationship Address Phone DANIEL DICKENS Unavailable [address] + [place] [address] GILLIAN Unavailable [address] + [place] [address] DANIEL DICKENS Unavailable [address] + [place] [address] GILLIAN Unavailable [address] + [place] [address] DANIEL DICKENS Unavailable [address] + [place] [address] GILLIAN Unavailable [address] + [place] [address] DANIEL DICKENS Unavailable [address] + [place] [address] GILLIAN Unavailable [address] + [place] [address] DANIEL DICKENS Unavailable [address] + [place] [address] GILLIAN Unavailable [address] + [place] [address] DANIEL DICKENS Unavailable [address] + [place] [address] GILLIAN Unavailable [address] + [place] [address] DANIEL DICKENS Unavailable [address] + [place] [address] GILLIAN Unavailable [address] + [place] [address] DANIEL DICKENS Unavailable [address] + [place] [address] GILLIAN Unavailable [address] + [place] [address] DANIEL DICKENS Unavailable [address] + [place] [address] GILLIAN Unavailable [address] + [place] [address] DANIEL DICKENS Unavailable [address] + [place] [address] GILLIAN Unavailable [address] + [place] [address] Care Team Providers Name Role Phone Spencer Ramirez Attending Unavailable Spencer Ramirez Referring Unavailable Jolliff, Reyna Primary Care Unavailable Ortega, Teresa Attending Unavailable Jolliff, Reyna Referring Unavailable Richmond, Teresa Attending Unavailable Ortega, Teresa Referring Unavailable Jolliff, Reyna Primary Care Unavailable Shannon Martin Attending Unavailable Jolliff, Reyna Primary Care Unavailable Ortega, Teresa Attending Unavailable Jolliff, Reyna Referring Unavailable Jolliff, Reyna Primary Care Unavailable Richmond, Teresa Attending Unavailable Jolliff, Reyna Primary Care Unavailable Ortega, Teresa Referring Unavailable Richmond, Teresa Attending Unavailable Jolliff, Reyna Referring Unavailable Ortega, Teresa Attending Unavailable Jolliff, Reyna Referring Unavailable Ortega, Teresa Attending Unavailable Ortega, Teresa Referring Unavailable Jolliff, Reyna Primary Care Unavailable Ortega, Teresa Attending Unavailable Jolliff, Reyna Referring Unavailable Jolliff, Reyna Primary Care Unavailable PROBLEMS PROBLEMS DATE TYPE CONDITION / CODE ATTENDING STATUS SOURCE 05/28/2018 Unknown N89.9 - Ortega, Teresa Active [place] Noninflammatory Community disorder of vagina, Hospital unspecified / Repository N89.9(ICD-10) 05/28/2018 Unknown N89.8 - Other Richmond, Teresa Active [place] specified Community noninflammatory Hospital disorders of vagina / Repository N89.8(ICD-10) 12/12/2017 Unknown Z30.431 - Encounter Richmond, Teresa Active [place] for routine checking [facility] contraceptive device Repository / Z30.431(ICD-10) 12/03/2017 Unknown R10.2 - Pelvic and Ortega, Teresa Active [place] perineal pain / Community R10.2(ICD-10) Hospital Repository 10/31/2017 Unknown Z30.430 - Encounter Richmond, Teresa Active [place] for insertion of [facility] intrauterine Hospital contraceptive device Repository / Z30.430(ICD-10) 10/17/2017 Unknown Z11.3 - Encounter for Teresa Vivas Active [place] screening for Community infections with a Hospital predominantly sexual Repository mode of transmission / Z11.3(ICD-10) 10/17/2017 Unknown Z12.4 - Encounter for Teresa Vivas Active [place] screening for Community malignant neoplasm of Hospital cervix / Repository Z12.4(ICD-10) PROCEDURES PROCEDURES No Procedure Records FoundRESULTS RESULTS Observed: 05/28/2018 Status: F Source: RIVER CULTURE, GENITAL 1:24 PM [facility] [place] COMPREHENSIVE REPOSITORY Reason for Exam: vaginal irritation [...] Growth Rare Performed By: #### M100.1600 #### [facility] [address] [place], [address] PUNCHBOARD FILLING MACHINE OPERATOR OFFICE VISIT Observed: 05/28/2018 Status: F Source: [place] REPORT 9:51 AM [facility] [place] [place] REPOSITORY [facility] [address] [place] [address] OFFICE VISIT Date of Service: 05/28/18 MR#: [id number] Acct: [id number] Name: SYLVESTER DICKENS Rep #: [id number] : 1995 Provider: OLGA Vivas Age/Sex: 22/F Location: [facility] Status: Signed Intake Vital Signs05/28/18 Height 5 ft 4 in 05/28/18 Weight: 194 lb 8 oz 05/28/18 Body Mass Index (BMI) 33.3 05/28/18 Blood Pressure 110/78 Intake Visit Reasons: IRRITATION Bleacher Sulfite Pulp Required: No Is patient in pain?: No [...] Devante BV and comp vaginal culture Reviewed HOUSING CASE MANAGER skin care and A AND D ointment If again positive consider metrogel weekly as preventative Coding Level of Care Code Off vis,est,level 3 Diagnoses Vaginal irritation N89.8 05/28/18 0951 <Electronically signed by Teresa Vivas NP-C> Date Teresa Vivas URANIUM PROCESSING SUPERVISOR-C Cosigner Signature: Date (if applicable) CC: SINUS/FACIAL BONE Observed: 05/27/2018 Status: F Source: RIVER 3:26 PM [facility] [place] [place] REPOSITORY [facility] Imaging Services [address] [place] [address] Sinus/Facial Bone MR#: [id number] Acct: [id number] Name: SYLVESTER DICKENS Rep #: [id number] : 1995 F 22 From: Kortney Quintanilla MD PCP: Reyna Guerrero MD Status: REG CLI Study: Sinus/Facial Bone Date of Exam: 05/27/18 Exam# [id number] Ordering Dr: Spencer Ramirez MD STUDY: CT [...] CC: Reyna Guerrero MD; Paulo Ramirez MD Building Maintenance Technician: Signed PUNCHBOARD FILLING MACHINE OPERATOR OFFICE VISIT Observed: 05/13/2018 Status: F Source: R[place] REPORT 12:55 PM [facility] [place] [place] REPOSITORY [facility] [address] [place] [address]. [address] [place] [address] OFFICE VISIT Date of Service: 10/16/17 MR#: [id number] Acct: [id number] Name: SYLVESTER DICKENS Rep #: [id number] : 1995 Provider: OLGA Vivas Age/Sex: 22/F Location: [facility] Status: Signed with Addenda ADDENDUM by OLGA [...] RTO onset of next menses Teresa Vivas HEMMING AND TACKING MACHINE OPERATOR Orders Orders: 05/13/18 1255 <Electronically signed by Teresa RUGGIERO> Date Tereas Vivas cc: * Signed Intake Vital Signs10/16/17 Height 5 ft 4.75 in 10/16/17 Weight: 180 lb 2 oz 10/16/17 Body Mass Index (BMI) 30.2 10/16/17 Blood Pressure 110/70 Intake Visit Reasons: NEW annual, BC Consult Chief Complaint: Est annual, BC Consult and Irregular VB Bleacher Sulfite Pulp Required: No Is patient in pain?: No [...] alert, oriented to person, oriented to place HENDE Head: normal to inspection Neck Neck: normal [...] RTO onset of next menses Teresa Vivas HEMMING AND TACKING MACHINE OPERATOR Orders Orders: Medications New: Coding Level of Care Code Off vis,new,prev 18-39yrs Diagnoses Encounter for gynecological examination without abnormal finding Z01.419 Gynecological examination findings: abnormal findings ABSENT Vaginal discharge N89.8 Contraception management Z30.9 10/16/17 1440 <Electronically signed by Teresa Vivas URANIUM PROCESSING SUPERVISOR-C> Date Teresa Vivas URANIUM PROCESSING SUPERVISOR-C Cosigner Signature: Date (if applicable) CC: PROGRESS Observed: 05/06/2018 Status: COMPLETED Source: [place] 5:[address] [facility] REPOSITORY HNO ID: [id number] Author: Penelope Mcintyre Service: (none) Author Type: [...] recently tested and treated for BV by HOUSING CASE MANAGER. States sx improved some but did not [...] taking this medication. Instructed to f/u with HOUSING CASE MANAGER if sx persist. The patient is instructed to return or seek emergency treatment if symptoms become worse or with any acute change in condition. The patient verbalizes understanding and is in agreement with plan of care. Penelope Mcintyre, ARNJANA CNOV Observed: 05/06/2018 Status: COMPLETED Source: [place] 4:30 PM [facility] REPOSITORY [facility] SYLVESTER DICKENS ([id number]) 1995 F Date Time Provider Department 05/06/18 4:30 PM PENELOPE MCINTYRE [facility] During your visit today, we recorded the following information about you: Temperature Pulse Respiration Blood pressure 97.5 degrees 88/minute 18/minute 110/68 Weight Last Period 86.2 kg 04/22/18 Penelope Mcintyre APRN.HEMMING AND TACKING MACHINE OPERATOR 05/06/2018 5:16 PM Signed Subjective HPI Pt presents with c/o nasal congestion and cough x 8 days. Denies fever, chills, myalgias, dyspnea, wheezing. Cough is frequent, moist, nonproductive. Intermittent coughing fits and chest tightness. Has been taking sudafed with minimal improvement. Pt also c/o recurrent BV sx. Was recently tested and treated for BV by HOUSING CASE MANAGER. States sx improved some but did not [...] taking this medication. Instructed to f/u with HOUSING CASE MANAGER if sx persist. The patient is instructed to return or seek emergency treatment if symptoms become worse or with any acute change in condition. The patient verbalizes understanding and is in agreement with plan of care. Penelope Mcintyre, HEMMING AND TACKING MACHINE OPERATOR Referring Provider: SELF [200] Allergies As of [...] Status:Closed by PENELOPE MCINTYRE CNP on 05/06/18 PUNCHBOARD FILLING MACHINE OPERATOR OFFICE VISIT Observed: 12/12/2017 Status: F Source: [place] REPORT 10:23 AM [facility] [address] [place] [address] OFFICE VISIT Date of Service: 12/12/17 MR#: [id number] Acct: [id number] Name: SYLVESTER DICKENS Rep #: [id number] : 1995 Provider: OLGA Vivas Age/Sex: 22/F Location: [facility] Status: Signed Intake Vital Signs12/12/17 Height 5 ft 4 in 12/12/17 Weight: 183 lb 4 oz 12/12/17 Body Mass Index (BMI) 31.4 12/12/17 Blood Pressure 112/77 Intake Visit Reasons: 6 WEEK MIRENA FOLLOW UP Bleacher Sulfite Pulp Required: No Is patient in pain?: No [...] applicable) CC: Observed: 12/03/2017 Status: F Source: RIVER CULTURE, GENITAL 3:51 PM [facility] [place] [place] [facility] REPOSITORY Reason for Exam: vaginal odor [...] Growth 3+ Performed By: #### M100.1600 #### [facility] [address] [place], [address] PUNCHBOARD FILLING MACHINE OPERATOR OFFICE VISIT Observed: 12/03/2017 Status: F Source: [place] REPORT 1:51 PM [facility] [place] [place] REPOSITORY [facility] [address] [place] [address] OFFICE VISIT Date of Service: 12/03/17 MR#: [id number] Acct: [id number] Name: SYLVESTER DICKENS Rep #: [id number] : 1995 Provider: OLGA Vivas Age/Sex: 22/F Location: [facility] Status: Signed Intake Vital Signs12/03/17 Height 5 ft 4 in 12/03/17 Weight: 185 lb 4 oz 12/03/17 Body Mass Index (BMI) 31.8 12/03/17 Blood Pressure 110/74 Intake Visit Reasons: IUD discomfort Chief Complaint: IUD discomfort Bleacher Sulfite Pulp Required: No Is patient in pain?: Yes Allergies No Known Allergies Allergy (Verified 12/03/17 13:31) Medications levonorgestrel 20 mcg/24 hr (5 years) intrauterine device 1 insert INTRAUTERINE ONCE 12/03/17 [History Confirmed 12/03/17] Is last menstrual period known: No Post menopausal: No Patient : No : No [facility] Medical History Celiac disease (Acute) Surgical History [...] RUGGIERO Cosigner Signature: Date (if applicable) CC: PUNCHBOARD FILLING MACHINE OPERATOR OFFICE VISIT Observed: 10/31/2017 Status: F Source: [place] REPORT 4:39 PM [facility] [address] [place] [address] OFFICE VISIT Date of Service: 10/31/17 MR#: [id number] Acct: [id number] Name: SYLVESTER DICKENS Rep #: [id number] : 1995 Provider: OLGA Vivas Age/Sex: 22/F Location: [facility] Status: Signed Intake Intake Visit Reasons: MIRENA [...] Admin Location Lot Number Expiration Date NDC Associate Professor Of Church Music 1 insert Intrauterine Assessment AND Plan Problems [...] of mirena IUD Z30.430 Additional Codes IUD (74886) 10/31/17 1639 <Electronically signed by Teresa RUGGIERO> Date Teresa RUGGIERO Cosigner Signature: Date (if applicable) CC: CT/NG WCH BY PCR Collected: 10/16/2017 Status: F Source: RIVER 6:04 PM [facility] [place] [place] REPOSITORY TYPE CODE TESTS RESULT OUT OF RANGE REFERENCE UNITS LAB L8200.2100 Negative Normal Chlam Negative Trac PCR LAB L8200.2200 Negative Normal NG by Negative PCR Performed By: #### L8200.1999 #### [facility] [address] [place], [address] PAP I-G W/RFX Collected: 10/16/2017 Status: F Source: [place] HRHPV-APTIMA 6:04 PM [facility] [place] [place] REPOSITORY Order Comment: CYTOLOGY INFORMATION: - CLINICAL INFORMATION: ANNUAL - DATE LMP/MENOPAUSE: LMP NOT GIVEN - COLLECTION VIAL: Thin Prep Vial - HOUSING CASE MANAGER SOURCE: CERVICAL - COLLECTION TECHNIQUE: BRUSH/SPATULA Specimen Comment: [id number] Specimen Comment: No. of containers..01 ThinPrep Vial TYPE CODE TESTS RESULT OUT OF RANGE REFERENCE UNITS LAB L7400.0800 . Normal DIAGN Comment Result Comment: NEGATIVE FOR INTRAEPITHELIAL LESION AND MALIGNANCY. LAB L7400.0900 . Normal ADEQ Comment Result Comment: Satisfactory for evaluation. Endocervical and/or squamous metaplastic cells (endocervical component) are present. LAB L7400.1400 . Normal PERFORM Comment Result Comment: Nemo Verma, Field Technical Specialist (ASCP) LAB L7400.2575 . Normal TEST METHOD [...] HPV testing was performed. Performed at: - [facility] [id number] Boatswain'S Mate: Gloria Garibay MD, Phone: [phone] Performed By: #### L7400.0353 #### [facility] (refer to report for specific site) refer to report for address and phone number ERYTHROCYTE SED RATE Collected: 09/05/2017 Status: F Source: [place] 7:18 AM [facility] [place] [place] REPOSITORY TYPE CODE TESTS RESULT OUT OF RANGE REFERENCE UNITS LAB L102.0000 0-20 mm/hr Normal SED RATE 4 Performed By: #### L101.9900, L100.0100 #### [facility] [address] [place], [address] CBC W/DIFF, AUTOMATED Collected: 09/05/2017 Status: F Source: [place] 7:18 AM [facility] [place] [place] REPOSITORY TYPE CODE TESTS RESULT OUT OF [...] 2.03 Performed By: #### L101.9900, L100.0100 #### [facility] [address] [place], [address] COMPREHENSIVE METABOLIC Collected: 09/05/2017 Status: F Source: [place] PROFIL 7:18 AM [facility] [place] [place] REPOSITORY TYPE CODE TESTS RESULT OUT OF [...] Normal GAP 9 Performed By: #### L500.4050, L501.59761, L501.9520, L503.6075, L503.6550, L506.0400 #### [facility] [address] [place], [address] FREE T3 Collected: 09/05/2017 Status: F Source: [place] 7:18 AM [facility] [place] [place] REPOSITORY TYPE CODE TESTS RESULT OUT OF RANGE REFERENCE UNITS LAB L501.26966 2.18-3.98 pg/mL Normal FREE T3 3.0 Performed By: #### L500.4050, L501.88246, L501.9520, L503.6075, L503.6550, L506.0400 #### [facility] [address] [place], [address] THYROID STIM HORMONE Collected: 09/05/2017 Status: F Source: [place] (TSH) 7:18 AM [facility] [place] [place] REPOSITORY TYPE CODE TESTS RESULT OUT OF RANGE REFERENCE UNITS LAB L501.9520 0.358-3.74 uIU/mL Normal TSH 1.62 Performed By: #### L500.4050, L501.55320, L501.9520, L503.6075, L503.6550, L506.0400 #### [facility] [address] [place], [address] IRON BINDING Collected: 09/05/2017 Status: F Source: [place] CAPACITY,TOTAL 7:18 AM [facility] [place] [place] REPOSITORY TYPE CODE TESTS RESULT OUT OF RANGE REFERENCE UNITS LAB L503.6075 250-450 ug/dL Normal TIBC 328 Performed By: #### L500.4050, L501.64743, L501.9520, L503.6075, L503.6550, L506.0400 #### [facility] [address] [place], [address] FERRITIN Collected: 09/05/2017 Status: F Source: [place] 7:18 AM [facility] [place] [place] REPOSITORY TYPE CODE TESTS RESULT OUT OF RANGE REFERENCE UNITS LAB L503.6550 8-252 ng/mL Normal FERRITIN 32 Performed By: #### L500.4050, L501.93104, L501.9520, L503.6075, L503.6550, L506.0400 #### [facility] [address] [place], [address] T4 FREE DIRECT Collected: 09/05/2017 Status: F Source: RIVER 7:18 AM [facility] [place] [place] REPOSITORY TYPE CODE TESTS RESULT OUT OF RANGE REFERENCE UNITS LAB L506.0400 0.76-1.46 ng/dL Normal T4 FREE 1.12 DIRECT Performed By: #### L500.4050, L501.55424, L501.9520, L503.6075, L503.6550, L506.0400 #### [facility] [address] [place], [place], [address] THYROID PEROXIDASE AB Collected: 09/05/2017 Status: F Source: RIVER 7:18 AM [facility] [place] [place] REPOSITORY TYPE CODE TESTS RESULT OUT OF RANGE REFERENCE UNITS LAB L3300.6900 0-34 IU/mL Normal TPO AB 13 6676 Result Comment: Performed at: [facility] [id number] Boatswain'S Mate: Santana Farooq PhD, Phone: [phone] Performed By: #### L3300.6900 #### [facility] (refer to report for specific site) refer to report for address and phone number ALLERGIES ALLERGIES DATE TYPE / CODE NAME / CODE REACTION SEVERITY SOURCE 05/28/2018 Drug No Known Unknown [facility] Allergy/416 Allergies/D65408 [facility] 215307(SNOM 0388(RXNORM) Repository ED CT) 10/30/2013 Environ/420 SEASONAL OTHER: SEE C [facility] 832233(SNOM ALLERGIES Main [place] ED CT) Repository ENCOUNTERS ENCOUNTERS ADMIT/DISCHARGE ACCOUNT ADMITTING ENCOUNTER LOCATION SOURCE NUMBER CLASS 05/28/2018 [id number] Ambulatory [facility] ing:LABSPEC Repository 05/28/2018/05/28/19 [id number] Ambulatory BMSBuilding:Frank Napoles [address] [facility] Repository 05/27/2018 [id number] Ambulatory [facility] ing:CT Repository 05/06/2018/05/08/19 [id number] Ambulatory [address] Main [place] Repository 12/12/2017/12/13/19 [id number] Ambulatory BMSBuilding:Frank Napoles [address] [facility] Repository 12/03/2017 [id number] Ambulatory [facility] ing:LABSPEC Repository 12/03/2017/12/04/19 [id number] Ambulatory BMSBuilding:B Seffner [address] [facility] Repository 10/31/2017/11/01/19 [id number] Ambulatory BMSBuilding:B [place] [address] [facility] Repository 10/16/2017 [id number] Ambulatory [facility] ing:LABSPEC Repository 10/16/2017/10/17/19 [id number] Ambulatory BMSBuilding:B [place] [address] [facility] Repository 09/05/2017 [id number] Ambulatory [facility] ing:MTLAB Repository PAYERS PAYERS ENCOUNTER GUARANTOR PAYER SUBSCRIBER SOURCE 05/28/2018 SYLVESTER Pina Primary DANIEL Napoles [id number] STOCK Insurance:AETNAPolicy HARTNICOLEERDOB: [facility] Number: [id number], [place] [id number] Repository [address]Pwq: 330) Date:7456-43-66XL [phone] () [place], [place] [address]XI: 05/28/2018 Secondary NOT GIVENUNK [place] Insurance:SELF PAY [facility] Number: Effective Repository Date:2018-05-28 05/28/2018 SYLVESTER Pina Primary DANIEL Napoles [id number] STOCK Insurance:AETNAPolicy HARTZLERDOB: [facility] Number: [id number], [place] [id number] Repository [address]Cdf: 330) Date:2301-18-27DY [phone] () [id number] [address]YF: 05/28/2018 Secondary NOT GIVENUNK [place] Insurance:SELF PAY [facility] Number: Effective Repository Date:2018-05-28 05/27/2018 SYLVESTER Pina Primary DANIEL [id number] [address] Insurance:AETNAPolicy HARTZLERDOB: Community [place] Number: [id number], [place] [id number] Repository [address]Npx: 330) Date:0033-29-83IE [phone] () [id number], [place] [address]OG: 05/27/2018 Secondary TEEKA T Seffner Insurance:[facility] HARTZLERDOB: [facility] Number: [id number] Hospital [id number] Repository Date:2018-05-22 05/27/2018 Tertiary NOT GIVENUNK [place] Insurance:SELF PAY [facility] Number: Effective Repository Date:2018-05-22 12/12/[address] [facility] Primary DANIEL Napoles [id number] STOCK Insurance:AETNAPolicy HARTZLERDOB: Community [facility] Number: [id number], [place] [id number] Repository [address]Fco: (330) Date:6705-67-68MI [phone] () [id number], [place] [address]FE: 12/12/2017 Secondary NOT GIVENUNK [place] Insurance:SELF PAY [facility] Number: Effective Repository Date:2017-12-12 12/03/[address] [facility] Primary Daniel Napoles [id number] STOCK Insurance:AETNAPolicy HartzlerDOB: Community [place] Number: [id number], [place] [id number] Repository [address]Zjd: (330) Date:2726-71-09NV [phone] () 289[place], [place] [address]AN: 12/03/2017 Secondary NOT GIVENUNK [place] Insurance:SELF PAY [facility] Number: Effective Repository Date:2017-12-03 12/03/[address] [facility] Primary Daniel Napoles [id number] STOCK Insurance:AETNAPolicy HartzlerDOB: Community [place] Number: [id number], [place] [id number] Repository [address]Zhh: (330) Date:5147-64-22TE [phone] (HP) [id number] [place] [address]FE: 12/03/2017 Secondary NOT GIVENUNK [place] Insurance:SELF PAY [facility] Number: Effective Repository Date:2017-11-30 10/31/2017 [facility] Primary Daniel Napoels [id number] STOCK Insurance:AETNAPolicy HartzlerDOB: Community [place] Number: [id number], [place] [id number] Repository [address]Wzw: (330) Date:1166-27-73FM [phone] (HP) [id number] [place] [address]CQ: 10/31/2017 Secondary NOT GIVENUNK [place] Insurance:SELF PAY [facility] Number: Effective Repository Date:2017-10-31 10/16/[address] [facility] Primary Daniel Napoles [id number] STOCK Insurance:AETNAPolicy HartzlerDOB: Community [place] Number: [id number], [place] [id number] Repository [address]Omw: (330) Date:6930-34-18EH [phone] (HP) [id number] [place] [address]WY: 10/16/2017 Secondary NOT GIVENUNK [place] Insurance:SELF PAY [facility] Number: Effective Repository Date:2017-10-16 10/16/[address] [facility] Primary Daniel Napoles [id number] STOCK Insurance:AETNAPolicy HartzlerDOB: Community [place] Number: [id number], [place] [id number] Repository [address]Ict: (330) Date:7637-45-87RA [phone] (HP) [id number] [place] [address]UG: 10/16/2017 Secondary NOT GIVENUNK [place] Insurance:SELF PAY [facility] Number: Effective Repository Date:2017-10-16 09/05/2017 Sylvester Pina Primary [facility]St[facility] [id number] STOCK Insurance:AETRhonda FloresB: [facility] Number: [id number], [place] [id number] Repository [address]Dlo: 330) Date:6735-06-26KI [phone] ( [id number] [place] [address]KR: 09/05/2017 Secondary NOT GIVENJOSE MARTIN Napoles Insurance:SELF PAY [facility] Number: Effective Repository Date:2017-09-05
== END ==
PROVIDERS: Family Provider Family Medicine; PCP Family Medicine; Referring Provider Nurse Practitioner Women's Health; Visit Provider Nurse Practitioner Women's Health
DX: N89.8 Other specified noninflammatory disorders of vagina (principal)
CPT/HCPCS: 87070; 87077; 87205

== ENCOUNTER → 2018-07-18 07:20 | Outpatient (CLI) | payer OTHER, SELFPAY ==
[2018-05-28 09:51] VITALS: BMI 31.4
[2018-07-18 10:17] LABS: Hemoglobin A1c 5.2 % (4.2-6.3)
[2018-07-18 10:30] LABS: Insulin 9.4 mU/L (2.6-37.6)
[2018-07-18 10:33] LABS: ALB/GLOB Ratio 1.1 RATIO (0.9-2.4); AST(SGOT) 21 U/L (15-37); Alanine Aminotransfer ALT/SGPT 22 U/L (13-56); Albumin, Serum 3.9 g/dL (3.2-5.0); Alkaline Phosphatase 20 U/L (45-117); Anion Gap 8 (5-15); BUN 19 mg/dL (7-18); BUN/Creat Ratio 27.7 RATIO (10-20); Calcium,Total 8.6 mg/dL (8.5-10.1); Chloride 107 mmol/L (98-107); Cholesterol 176 mg/dL (200); Creatinine, Serum 0.68 mg/dL (0.55-1.02); EST Glomerular Filtration Rate 111 mL/min (>60); Est Glom Filt Rate - Afr Amer 135 mL/min (>60); Free T3 2.8 pg/mL (2.18-3.98); Globulin 3.4 g/dL (2.2-4.2); Glucose 69 mg/dL (74-106); High Density Lipoprotein 41 mg/dL; Potassium 3.7 mmol/L (3.5-5.1); Protein, Total 7.3 g/dL (6.4-8.2); Sodium Level 137 mmol/L (136-145); T4 Free Direct 0.96 ng/dL (0.76-1.46); Thyroid Stim Hormone (TSH) 1.54 uIU/mL (0.358-3.74); Triglycerides 76 mg/dL; Very Low Density Lipoprotein 15 mg/dL (5-40)
== END ==
PROVIDERS: Family Provider Family Medicine; PCP Family Medicine; Referring Provider Internal Medicine Endocrinology, Diabetes & Metabolism; Visit Provider Internal Medicine Endocrinology, Diabetes & Metabolism
DX: E04.9 Nontoxic goiter, unspecified (principal)
CPT/HCPCS: 36415; 80053; 80061; 83036; 83525; 84439; 84443; 84481

== ENCOUNTER → 2018-08-19 | Outpatient (CLI) | payer OTHER, SELFPAY ==
[2018-08-19 11:34] VITALS: BMI 31.4
== END | disposition home or self-care (01) ==
PROVIDERS: Family Provider Family Medicine; PCP Family Medicine; Referring Provider Obstetrics & Gynecology; Visit Provider Obstetrics & Gynecology
DX: N89.8 Other specified noninflammatory disorders of vagina (principal)
CPT/HCPCS: 87070; 87077; 87186; 87205

== ENCOUNTER → 2018-09-24 | Outpatient (CLI) | payer OTHER, SELFPAY ==
[2018-09-24 13:18] VITALS: BMI 31.6
[2018-09-24 14:07] LABS: Absolute Neutrophil Count 5.8 X10^3/uL (2.0-7.7); Basophil# 0.03 X10^3/uL; Basophil% 0.4 % (0-1); Eosinophil# 0.14 X10^3/uL; Eosinophils% 1.7 % (0-5); Hematocrit 42.3 % (37-47); Hemoglobin 14.3 g/dl (12.0-15.0); Mean Corp Hgb Conc 33.8 g/gl (32-36); Mean Corpuscular Hgb 28.3 pg (27.0-32.0); Mean Corpuscular Volume 83.6 fL (81-99); Mean Platelet Vol. 9.2 fl (6.2-12.0); Monocyte# 0.41 X10^3/uL; Neutrophil # 5.78 X10^3/uL (2.7-7.7); Neutrophil % 69.8 % (47-70); Platelet Count 277 K/mm3 (150-450); RBC Distribution Width CV 13.6 % (11.6-14.6); RBC Distribution Width SD 41.2 fl (35.1-43.9); Red Blood Count 5.06 M/mm3 (4.2-5.4); White Blood Count 8.3 K/mm3 (4.4-11.0)
[2018-09-24 14:08] LABS: POSITIVE COUNT NO; POSITIVE DIFFERENTIAL NO; POSITIVE MORPHOLOGY NO
[2018-09-24 14:40] LABS: Thyroid Stim Hormone (TSH) 1.08 uIU/mL (0.358-3.74)
[2018-09-24 22:13] LABS: Chlamydia Trachomatis by PCR Negative (Negative); Neisserai gonorrhoeae by PCR Negative (Negative); Probe Check PASS; Sample Adequacy Control PASS; Specimen Processing Control PASS
== END | disposition home or self-care (01) ==
PROVIDERS: Family Provider Family Medicine; PCP Family Medicine; Referring Provider Nurse Practitioner Women's Health; Visit Provider Nurse Practitioner Women's Health
DX: N92.6 Irregular menstruation, unspecified (principal); N76.0 Acute vaginitis
CPT/HCPCS: 36415; 84443; 85025; 87070; 87205; 87491; 87591

== ENCOUNTER → 2018-10-03 | Outpatient (CLI) | payer OTHER, SELFPAY ==
[2018-09-24 14:01] VITALS: BMI 31.6
--- NOTE | 2018-10-03 07:56 | US_ITS ---
STUDY: ULTRASOUND OF THE FEMALE PELVIS - COMPLETE REASON FOR EXAM: Female, 23 years old. Irregular menses LMP: 09/23/2018 TECHNIQUE: Transabdominal and Transvaginal TECHNICAL QUALITY: Adequate. COMPARISON: None. FINDINGS: The uterus is anteverted and is in a midline position. The uterus measures 8.4 x 5.3 x 4.1 cm. Normal uterine cervix. The endometrium measures 6 mm in thickness, and is hyperechoic. There is no demonstrated endometrial mass. There is no demonstrated myometrial mass. I.U.D. - The patient does have an I.U.D. The right ovary is visualized. The right ovary measures 2.4 x 1.4 x 1.3 cm. There is no right ovarian cyst or ovarian mass. There is no visualized right adnexal mass or complex lesion. There is normal arterial and normal venous vascularity. The left ovary is visualized. The left ovary measures 4.1 x 2.8 x 2.3 cm. 2.6 x 2.4 x 2.1 cm cyst. There is no visualized left adnexal mass or complex lesion. There is normal arterial and normal venous vascularity. There is no fluid in the cul-de-sac. The pre void volume of the bladder was 63.1 ml. Polycystic ovary disease: No. US/Pelvic (Non ) IMPRESSION: 2.6 cm simple left ovary cyst. IUD in the expected position. Electronically Signed: Rodrigo Tamayo MD at 17:41 EDT Tel , Service support ,
--- NOTE | 2018-10-03 07:56 | US_ITS ---
STUDY: ULTRASOUND OF THE FEMALE PELVIS - COMPLETE REASON FOR EXAM: Female, 23 years old. Irregular menses LMP: 09/23/2018 TECHNIQUE: Transabdominal and Transvaginal TECHNICAL QUALITY: Adequate. COMPARISON: None. FINDINGS: The uterus is anteverted and is in a midline position. The uterus measures 8.4 x 5.3 x 4.1 cm. Normal uterine cervix. The endometrium measures 6 mm in thickness, and is hyperechoic. There is no demonstrated endometrial mass. There is no demonstrated myometrial mass. I.U.D. - The patient does have an I.U.D. The right ovary is visualized. The right ovary measures 2.4 x 1.4 x 1.3 cm. There is no right ovarian cyst or ovarian mass. There is no visualized right adnexal mass or complex lesion. There is normal arterial and normal venous vascularity. The left ovary is visualized. The left ovary measures 4.1 x 2.8 x 2.3 cm. 2.6 x 2.4 x 2.1 cm cyst. There is no visualized left adnexal mass or complex lesion. There is normal arterial and normal venous vascularity. There is no fluid in the cul-de-sac. The pre void volume of the bladder was 63.1 ml. Polycystic ovary disease: No. US/Transvaginal Non- IMPRESSION: 2.6 cm simple left ovary cyst. IUD in the expected position. Electronically Signed: Rodrigo Tamayo MD at 17:41 EDT Tel , Service support ,
== END | disposition home or self-care (01) ==
PROVIDERS: Family Provider Family Medicine; PCP Family Medicine; Referring Provider Nurse Practitioner Women's Health; Visit Provider Nurse Practitioner Women's Health
DX: N92.6 Irregular menstruation, unspecified (principal); Z30.431 Encounter for routine checking of intrauterine contraceptive device
CPT/HCPCS: 76830; 76856

== ENCOUNTER → 2019-02-12 | Outpatient (CLI) | payer OTHER, SELFPAY ==
[2018-09-24 14:01] VITALS: BMI 31.6
[2019-02-12 18:44] LABS: AST(SGOT) 15 U/L (15-37); Alanine Aminotransfer ALT/SGPT 30 U/L (13-56); Albumin, Serum 3.8 g/dL (3.2-5.0); Alkaline Phosphatase 24 U/L (45-117); Anion Gap 10 (5-15); BUN 18 mg/dL (7-18); BUN/Creat Ratio 19.4 RATIO (10-20); Calcium,Total 9.1 mg/dL (8.5-10.1); Chloride 108 mmol/L (98-107); Creatinine, Serum 0.93 mg/dL (0.55-1.02); EST Glomerular Filtration Rate 78 mL/min (>60); Est Glom Filt Rate - Afr Amer 94 mL/min (>60); Globulin 3.8 g/dL (2.2-4.2); Glucose 89 mg/dL (74-106); Potassium 4.1 mmol/L (3.5-5.1); Protein, Total 7.6 g/dL (6.4-8.2); Sodium Level 142 mmol/L (136-145)
== END | disposition home or self-care (01) ==
LOC: LAB 17:51
PROVIDERS: Family Provider Family Medicine; PCP Family Medicine; Referring Provider Internal Medicine Endocrinology, Diabetes & Metabolism; Visit Provider Internal Medicine Endocrinology, Diabetes & Metabolism
DX: E04.9 Nontoxic goiter, unspecified (principal)
CPT/HCPCS: 36415; 80053; 84443

== ENCOUNTER → 2019-02-24 | Outpatient (CLI) | payer OTHER, SELFPAY ==
[2018-09-24 14:01] VITALS: BMI 31.6
--- NOTE | 2019-02-24 12:32 | US_ITS ---
STUDY: ULTRASOUND OF THE FEMALE PELVIS - COMPLETE REASON FOR EXAM: Female, 23 years old. Ovarian cyst LMP: TECHNIQUE: Transabdominal and Transvaginal TECHNICAL QUALITY: Adequate. COMPARISON: 10/03/2018 FINDINGS: The uterus is anteverted and is in a midline position. The uterus measures 8.7 x 5.1 x 3.4 cm. Normal uterine cervix. The endometrium measures 2.1 mm in thickness, and is hyperechoic. There is no demonstrated endometrial mass. There is no demonstrated myometrial mass. I.U.D. - The patient does have an I.U.D. is in appropriate location within the endometrium. The right ovary is visualized. The right ovary measures 2.1 x 4.3 x 3.4 cm. There is a circumscribed thin-walled right ovarian cyst measuring 2.3 x 2.6 x 1.7 cm. There is no visualized right adnexal mass or complex lesion. There is normal arterial and normal venous vascularity. The left ovary is visualized. The left ovary measures 3.0 x 2.5 x 1.9 cm. There is no left ovarian cyst or ovarian mass. There is no visualized left adnexal mass or complex lesion. There is normal arterial and normal venous vascularity. There is no fluid in the cul-de-sac. The pre void volume of the bladder was 381 ml. Polycystic ovary disease: No. US/Transvaginal Non- IMPRESSION: Small benign-appearing right ovarian cyst. IUD in satisfactory position. Electronically Signed: Ghislaine Phelps MD at 23:56 EDT Tel , Service support ,
--- NOTE | 2019-02-24 12:32 | US_ITS ---
STUDY: ULTRASOUND OF THE FEMALE PELVIS - COMPLETE REASON FOR EXAM: Female, 23 years old. Ovarian cyst LMP: TECHNIQUE: Transabdominal and Transvaginal TECHNICAL QUALITY: Adequate. COMPARISON: 10/03/2018 FINDINGS: The uterus is anteverted and is in a midline position. The uterus measures 8.7 x 5.1 x 3.4 cm. Normal uterine cervix. The endometrium measures 2.1 mm in thickness, and is hyperechoic. There is no demonstrated endometrial mass. There is no demonstrated myometrial mass. I.U.D. - The patient does have an I.U.D. is in appropriate location within the endometrium. The right ovary is visualized. The right ovary measures 2.1 x 4.3 x 3.4 cm. There is a circumscribed thin-walled right ovarian cyst measuring 2.3 x 2.6 x 1.7 cm. There is no visualized right adnexal mass or complex lesion. There is normal arterial and normal venous vascularity. The left ovary is visualized. The left ovary measures 3.0 x 2.5 x 1.9 cm. There is no left ovarian cyst or ovarian mass. There is no visualized left adnexal mass or complex lesion. There is normal arterial and normal venous vascularity. There is no fluid in the cul-de-sac. The pre void volume of the bladder was 381 ml. Polycystic ovary disease: No. US/Pelvic (Non ) IMPRESSION: Small benign-appearing right ovarian cyst. IUD in satisfactory position. Electronically Signed: Ghislaine Phelps MD at 23:56 EDT Tel , Service support ,
== END | disposition home or self-care (01) ==
PROVIDERS: Family Provider Family Medicine; PCP Family Medicine; Referring Provider Nurse Practitioner Women's Health; Visit Provider Nurse Practitioner Women's Health
DX: D25.9 Leiomyoma of uterus, unspecified (principal)
CPT/HCPCS: 76830; 76856; 93976

== ENCOUNTER → 2019-03-04 | Outpatient (CLI) | payer OTHER, SELFPAY ==
[2019-03-04 13:06] VITALS: BMI 31.6
== END | disposition home or self-care (01) ==
LOC: PAVLAB 15:29
PROVIDERS: Family Provider Family Medicine; PCP Family Medicine; Visit Provider Nurse Practitioner Women's Health
DX: N76.0 Acute vaginitis (principal)
CPT/HCPCS: 87070; 87205

== ENCOUNTER → 2019-11-24 17:18 | Outpatient (CLI) | payer BC, SELFPAY ==
[2019-11-24 16:46] VITALS: BMI 31.6
== END ==
PROVIDERS: PCP Family Medicine; Visit Provider Obstetrics & Gynecology
DX: N89.8 Other specified noninflammatory disorders of vagina (principal)
CPT/HCPCS: 87070; 87205

== ENCOUNTER → 2020-09-07 15:53 | Outpatient (CLI) | payer BC, SELFPAY ==
[2020-09-07 15:03] VITALS: BMI 34.0
[2020-09-07 16:46] LABS: Absolute Lymphocyte Count 2.24 X10^3/uL (0.83-4.51); Absolute Neutrophil Count 3.4 X10^3/uL (2.0-7.7); Basophil# 0.06 X10^3/uL; Basophil% 0.9 % (0-1); Eosinophil# 0.15 X10^3/uL; Eosinophils% 2.4 % (0-5); Hematocrit 44.2 % (37-47); Hemoglobin 14.4 g/dL (12.0-15.0); Lymphocyte # 2.24 X10^3/ul (0.83-4.51); Lymphocyte % 35.1 % (19-41); Mean Corp Hgb Conc 32.6 g/dL (32-36); Mean Corpuscular Hgb 27.9 pg (27.0-32.0); Mean Corpuscular Volume 85.5 fL (81-99); Mean Platelet Vol. 9.4 fl (6.2-12.0); Monocyte# 0.55 X10^3/uL; Monocyte% 8.6 % (0-10); NRBC Flagged by Analyzer 0 % (0-5); Neutrophil # 3.37 X10^3/uL (2.7-7.7); Neutrophil % 52.8 % (47-70); Platelet Count 323 K/mm3 (150-450); RBC Distribution Width CV 13.4 % (11.6-14.6); RBC Distribution Width SD 42.4 fl (35.1-43.9); Red Blood Count 5.17 M/mm3 (4.2-5.4); White Blood Count 6.4 K/mm3 (4.4-11.0)
[2020-09-07 17:45] LABS: ALB/GLOB Ratio 1.1 RATIO (0.9-2.4); AST(SGOT) 13 U/L (15-37); Alanine Aminotransfer ALT/SGPT 19 U/L (13-56); Albumin, Serum 3.9 g/dL (3.2-5.0); Alkaline Phosphatase 35 U/L (45-117); Anion Gap 6 (5-15); BUN 20 mg/dL (7-18); Calcium,Total 9.2 mg/dL (8.5-10.1); Chloride 105 mmol/L (98-107); Cholesterol 243 mg/dL (200); EST Glomerular Filtration Rate 91 mL/min (>60); Est Glom Filt Rate - Afr Amer 110 mL/min (>60); Globulin 3.4 g/dL (2.2-4.2); Glucose 84 mg/dL (74-106); High Density Lipoprotein 46 mg/dL; Potassium 3.9 mmol/L (3.5-5.1); Protein, Total 7.3 g/dL (6.4-8.2); Sodium Level 139 mmol/L (136-145); T4 Free Direct 0.88 ng/dL (0.76-1.46); Thyroid Stim Hormone (TSH) 1.43 uIU/mL (0.358-3.74); Triglycerides 166 mg/dL; Very Low Density Lipoprotein 33 mg/dL (5-40)
== END ==
PROVIDERS: PCP Internal Medicine; Referring Provider Internal Medicine; Visit Provider Internal Medicine
DX: K90.0 Celiac disease (principal); E66.9 Obesity, unspecified; Z13.29 Encounter for screening for other suspected endocrine disorder
CPT/HCPCS: 36415; 80053; 80061; 84439; 84443; 85025

== ENCOUNTER 2021-05-20 16:59 | Outpatient (CLI) | payer BC, SELFPAY ==
[2021-05-25 10:16] LABS: HPV Reflexed? NOT INDICATED
== END 2021-05-20 23:59 | disposition short-term general hospital (02) ==
LOC: LABSPEC 17:01
PROVIDERS: PCP Internal Medicine; Visit Provider Obstetrics & Gynecology
DX: Z12.4 Encounter for screening for malignant neoplasm of cervix (principal)
CPT/HCPCS: 88175; G0145

== ENCOUNTER → 2022-03-13 | Outpatient (CLI) | payer BC, SELFPAY ==
[2022-03-13 09:40] LABS: Erythrocyte Sedimentation Rate 6 mm/hr (0-30)
[2022-03-13 09:45] LABS: Absolute Lymphocyte Count 2.01 X10^3/uL (0.83-4.51); Absolute Neutrophil Count 2.7 X10^3/uL (2.0-7.7); Basophil# 0.04 X10^3/uL; Basophil% 0.8 % (0-1); Eosinophil# 0.11 X10^3/uL; Eosinophils% 2.1 % (0-5); Hematocrit 45.2 % (37-47); Hemoglobin 15.5 g/dL (12.0-15.0); Lymphocyte # 2.01 X10^3/ul (0.83-4.51); Lymphocyte % 37.8 % (19-41); Mean Corp Hgb Conc 34.3 g/dL (32-36); Mean Corpuscular Volume 84.6 fL (81-99); Mean Platelet Vol. 9.2 fl (6.2-12.0); Monocyte# 0.43 X10^3/uL; Monocyte% 8.1 % (0-10); NRBC Flagged by Analyzer 0 % (0-5); Neutrophil # 2.72 X10^3/uL (2.7-7.7); Platelet Count 291 K/mm3 (150-450); RBC Distribution Width CV 12.9 % (11.6-14.6); RBC Distribution Width SD 39.8 fl (35.1-43.9); Red Blood Count 5.34 M/mm3 (4.2-5.4); White Blood Count 5.3 K/mm3 (4.4-11.0)
[2022-03-13 09:52] LABS: Hemoglobin A1c 5.2 % (3.8-5.6)
[2022-03-13 10:12] LABS: ALB/GLOB Ratio 1.1 RATIO (0.9-2.4); AST(SGOT) 8 U/L (15-37); Alanine Aminotransfer ALT/SGPT 20 U/L (13-56); Alkaline Phosphatase 24 U/L (45-117); Anion Gap 6 (5-15); BUN 12 mg/dL (7-18); CRP < 2.90 mg/L (0.0-3.0); Calcium,Total 9.5 mg/dL (8.5-10.1); Chloride 107 mmol/L (98-107); EST Glomerular Filtration Rate 91 mL/min (>60); Est Glom Filt Rate - Afr Amer 110 mL/min (>60); Ferritin 54 ng/mL (8-252); Free T3 2.3 pg/mL (2.18-3.98); Globulin 3.6 g/dL (2.2-4.2); Glucose 85 mg/dL (74-106); LDH 157 U/L (84-246); Potassium 3.9 mmol/L (3.5-5.1); Protein, Total 7.6 g/dL (6.4-8.2); Sodium Level 138 mmol/L (136-145); T4 Free Direct 0.87 ng/dL (0.76-1.46); Thyroid Stim Hormone (TSH) 1.56 uIU/mL (0.358-3.74)
[2022-03-14 15:07] LABS: Endomysial Antibody IgA Negative (Negative); Immunoglobulin A 68 mg/dL (87-352)
[2022-03-14 16:30] LABS: Fats, Neutral Normal (.); Fats, Total Increased (.)
[2022-03-15 19:39] LABS: t-Transglutaminase IgA <2 U/mL (0-3)
[2022-03-15 22:07] LABS: Anti-Centromere B Ab 0.9 AI (0.0-0.9); Anti-Chromatin <0.2 AI (0.0-0.9); Anti-Jo <0.2 AI (0.0-0.9); Anti-Scleroderma-70 AB <0.2 AI (0.0-0.9); RNP Ab 0.2 AI (0.0-0.9); SJOGREN'S Anti-SS-A test < 0.2 AI (0.0-0.9); SJOGREN'S Anti-SS-B test < 0.2 AI (0.0-0.9); Smith Ab <0.2 AI (0.0-0.9)
[2022-03-17 14:35] LABS: Anti-dsDNA Ab <1 IU/mL (0-9); Calprotectin, Stool <16 ug/g (0-120)
[2022-03-17 15:05] LABS: Pancreatic Elastase, Fecal 162 (>200)
[2022-03-19 16:07] LABS: Albumin 4.1 g/dL (2.9-4.4); Alpha-1-Globulins 0.2 g/dL (0.0-0.4); Alpha-2-Globulins 0.8 g/dL (0.4-1.0); Cytoplasmic Ab (C-ANCA) <1:20 titer (Neg:<1:20); Immunoglobulin A 66 mg/dL (87-352); Immunoglobulin E 10 IU/mL (6-495); Immunoglobulin G 954 mg/dL (586-1602); Immunoglobulin M 196 mg/dL (26-217)
[2022-03-20 09:56] LABS: Angiotensin Convert Enzyme 41 U/L (14-82); Perinuclear Ab (P-ANCA) <1:20 titer (Neg:<1:20)
== END | disposition home or self-care (01) ==
PROVIDERS: PCP Internal Medicine; Referring Provider Internal Medicine Gastroenterology; Visit Provider Internal Medicine Gastroenterology
DX: K58.9 Irritable bowel syndrome, unspecified (principal); R10.9 Unspecified abdominal pain; J01.90 Acute sinusitis, unspecified; K90.0 Celiac disease
CPT/HCPCS: 36415; 80053; 82164; 82653; 82705; 82728; 82784; 82785; 83036; 83516; 83615; 83630; 83993; 84165; 84439; 84443; 84481; 85025; 85652; 86140; 86225; 86235; 86255; 86256; 86334; 87506

== ENCOUNTER 2022-05-03 05:25 | Day surgery (SDC) | payer BC, SELFPAY ==
[2022-05-03 06:15] VITALS: BP 111/59; PULSE 69; RESP 16; TEMP 36.4; O2SAT 95; BMI 34.4
[2022-05-03] MEDS: Lactated Ringers 1,000 ML 15 ML IV (06:15)
[2022-05-03 06:24] LABS: Internal QC Validated? YES +Cl - CLEAR BKGD; Pregnancy, Urine Negative Negative
--- NOTE | 2022-05-03 06:30 | COLBX_PTH ---
PATIENT: SYLVESTER CARDENAS LOC: EN U#:[id number] AGE/SX: 26/F ROOM: RE05/03/[address]: Dr. Juan Heaton DO : 1995 BED: DIS: 05/03/2022 SPEC #: [id number] RECD: 05/03/22 13:50 STATUS: [facility]COLN MELQUIADES #: [id number] SUSIE: 05/03/22 06:[address]: Juan Heaton DEPT: SURGICAL PATHOLOGY RECD BY: Benton Felix ENTERED: 05/04/22 10:14 SP TYPE: COLON BX OTHR DR: Dr. Janes Walton MD Tissues: A - Duodenum, NOS B - Esophagus, NOS C - Ileum, NOS D - COLON BIOPSY Procedures: Special Stain Group II Surgery Specimen Level IV Alcian Blue/PAS (control) HEADER OPERATION: Colonoscopy, EGD ([facility] [place]) PRE-OP DIAGNOSIS: Celiac disease, abdominal discomfort TISSUE SUBMITTED: A ? Duodenum biopsy, B ? Distal esophagus biopsy, C ? Terminal ileum biopsy, D ? Random colon biopsy MICROSCOPIC DIAGNOSIS A. Duodenum, biopsy: A fragment of duodenal mucosa with Ml gland hyperplasia. B. Distal esophagus, biopsy: Fragments of gastroesophageal mucosa with moderate chronic inflammation. Intestinal metaplasia (goblet cell metaplasia) not identified. See comment. C. Terminal ileum, biopsy: Fragments of small intestinal mucosa, no pathologic diagnosis. See comment. D. Colon, random biopsy: Fragments of colonic mucosa, no pathologic diagnosis. SJ:al 05/05/2022 COMMENT B. Alcian blue/PAS stain with matched control is used in the evaluation of the specimen. The specimen predominantly consists of gastric mucosa. C. Prominent lymphoid aggregates are noted. MICROSCOPIC DESCRIPTION Slides are reviewed. GROSS DESCRIPTION A - Received in fixative is one container labeled with the patient's name and designated duodenum biopsy. The specimen consists of one irregular fragment of light avendaño soft tissue that measures 0.7 x 0.6 x 0.1 cm. The specimen is totally submitted in one cassette. B - Received in fixative is one container labeled with the patient's name and designated distal esophagus biopsy. The specimen consists of two irregular fragments of light avendaño soft tissue that in aggregate measure 0.8 x 0.3 x 0.1 cm. The specimen is totally submitted in one cassette. C - Received in fixative is one container labeled with the patient's name and designated terminal ileum biopsy. The specimen consists of multiple irregular fragments of light avendaño soft tissue that in aggregate measure 1.5 x 0.3 x 0.1 cm. The specimen is totally submitted in one cassette. D - Received in fixative is one container labeled with the patient's name and designated random colon biopsy. The specimen consists of multiple irregular fragments of light avendaño soft tissue that in aggregate measure 2 x 0.6 x 0.1 cm. The specimen is totally submitted in one cassette. / AM:al 05/04/2022 TC:3 CPT: 33973 x4, 42804
--- NOTE | 2022-05-03 06:34 | PCM.HP.BLA ---
History and Physical Date of Admission: 05/03/22 26 F who presents to the office today for Initial consult. Lucio established with this clinic 03.13.22 to establish care for celiac disease diagnosed in 2011. She has been having difficulty with abdominal pain since her mid-teens. She was found to have celiac disease and has experienced flares with hives, oral ulcers, facial swelling and nasal sores. She has been able to maintain a gluten free diet since diagnosis. Symptoms at this time include headaches, abdominal bloating/tenderness and diarrhea alternating with constipation. Weight gain has been difficulty. Upper GI with SBFT 5.7.13 with normal findings. EGD has been performed several times; which she reports confirming celiac disease. ROS Const Constitutional: No fatigue, malaise, night sweats, snoring, weight change, sleep problems, abnormal sleep pattern or change in appetite Eyes Eyes: No blurry vision, change in vision, eye pain or Light sensitivity ENT ENT: No difficulty swallowing, hoarseness or sore throat Resp Respiratory: No cough, shortness of breath, snoring or wheezing Cardio Cardiology: No chest pain at rest Gastro GI: No belching, bloating, change in bowel habits, change in stool character, coffee ground emesis, cramping, difficulty swallowing, feeling full early, excessive flatus, incontinent of stools, Vomiting blood/hematemesis, Blood in stool, loose stools, Black,tarry stools, nausea/dyspepsia, pain with swallowing, vomiting or other Genitourinary-Female: No burning urination, painful urination, urinary incontinence or urinary frequency Musc Musculoskeletal: No joint pain Skin Skin: No yellowing of the eye or itchy eyes Neuro Neurology: No behavioral changes Psych Psychiatric: No abnormal sleep pattern, No anxiety, No behavioral changes, No change in appetite and No depression Endo Endocrine: No fatigue or weight change Aller/Imm Allergy/Immunologic: No itchy eyes or wheezing Miguel/Lymp Hematologic/Lymphatic: No easy bleeding or easy bruising Exam Const General: cooperative, comfortable and no acute distress Orientation: alert and oriented x3 Limitations: mental status not altered [facility] Head: normal to inspection, normocephalic and atraumatic Ears: hearing grossly normal bilaterally Eyes General: appearance normal, both eyes and all related structures Neck Neck: normal visual inspection, no lymphadenopathy, trachea midline and supple Neck mass: No Thyroid: thyroid normal Resp Effort & Inspection: normal respiratory effort, able to speak in complete sentences, normal respiratory pattern, no audible wheezes and no cough Auscultation: Bilateral: Clear to Auscultation Cardio Rate: regular rate Rhythm: regular rhythm Heart Sounds: S1 normal, S2 normal, no gallops, no murmurs and no rubs Pulses: radial pulses present GI Palpation: soft and nontender Skin General: no rashes or lesions noted Trauma: no lacerations or abrasions Wounds: no wounds Neuro General: patient alert, patient oriented x3 and moves all extremities Cognition: normal cognition Speech: speech normal Extrem General: normal to inspection, no clubbing, cyanosis or edema and no pedal edema Psych Appearance: grossly normal Mental Status: mental status grossly normal Mood: congruent mood Affect: normal affect Speech and Movement: speech and movement normal Attitude: cooperative Thought Process: normal Thought Content: normal Judgment: judgment good Quality Reporting Tobacco Screening ([facility]) Smoking Status: Never smoker Assessment and Plan Assessment and Plan (1) Celiac disease: ?Status:?Chronic ?Plan: 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 I do not know if she was consuming gluten at that time.? She is at risk for microscopic colitis which can cause her to have some diarrhea.? I am not sure if the rashes that she described is secondary to a previous diagnosis of possible Behcet's disease, urticarial vasculitis or another autoimmune disease. (2) Abdominal discomfort: ?Status:?Chronic ?Plan: Abdominal pain and bloating possibly secondary to celiac disease, exocrine pancreatic insufficiency, small bacterial overgrowth.? She will get stool testing and biochemical testing and will likely need a gastric emptying study and a HIDA scan to see if there are any signs of sphincter of Oddi dysfunction. (3) Obesity (BMI 30-39.9): ?Status:?Chronic ?Plan: ?IgA+?immune cells and less secretory IgA and IgA-promoting immune mediators. HFD-fed IgA-deficient mice have dysfunctional glucose metabolism, a phenotype that can be recapitulated by adoptive transfer of intestinal-associated gentile-B cells. Mechanistically, IgA is a crucial link that controls intestinal and adipose tissue inflammation, intestinal permeability, microbial encroachment and the composition of the intestinal microbiome?during HFD. Current glucose-lowering therapies, including metformin, affect intestinal-related IgA+?B cell populations in mice, while bariatric surgery regimen alters the level of fecal secretory IgA in humans. These findings identify intestinal IgA+?immune cells as mucosal mediators of whole-body glucose regulation in diet-induced metabolic disease. She may be a candidate for metformin in the setting of IgA deficiency to help her lose weight.? She was on a weight loss drug previously but could not tolerate the side effects.? She did not know which weight loss medicine that was previously prescribed to her. ? ? ? Orders: Orders Comprehensive Metabolic Profil Today - Acute sinusitis, unspecified, K90.0 - Celiac disease, R10.9 - Unspecified abdominal pain ? CRP Today - Acute sinusitis, unspecified, K90.0 - Celiac disease, R10.9 - Unspecified abdominal pain ? LDH Today - Acute sinusitis, unspecified, K90.0 - Celiac disease, R10.9 - Unspecified abdominal pain ? CBC W/Diff, Automated Today - Acute sinusitis, unspecified, K90.0 - Celiac disease, R10.9 - Unspecified abdominal pain ? Erythrocyte Sed Rate Today - Acute sinusitis, unspecified, K90.0 - Celiac disease, R10.9 - Unspecified abdominal pain ? TOÑO Comprehensive Panel Today K90.0 - Celiac disease, R10.9 - Unspecified abdominal pain ? Calprotectin, Stool Today K90.0 - Celiac disease, R10.9 - Unspecified abdominal pain ? Stool Lactoferrin/WBC Today - Acute sinusitis, unspecified, K90.0 - Celiac disease, R10.9 - Unspecified abdominal pain ? ANCA Today - Acute sinusitis, unspecified, K90.0 - Celiac disease, R10.9 - Unspecified abdominal pain ? Celiac Disease Profile Today - Acute sinusitis, unspecified, K90.0 - Celiac disease, R10.9 - Unspecified abdominal pain ? Immunoglobulins G/A/M/E Today - Acute sinusitis, unspecified, K90.0 - Celiac disease, R10.9 - Unspecified abdominal pain ? AVANI + Protein Elect, Serum Today - Acute sinusitis, unspecified, K90.0 - Celiac disease, R10.9 - Unspecified abdominal pain ? Miscellaneous Lab Procedure Today K90.0 - Celiac disease, R10.9 - Unspecified abdominal pain ? Angiotensin Convert Enzyme Today - Acute sinusitis, unspecified, R10.9 - Unspecified abdominal pain ? Free T3 Today - Acute sinusitis, unspecified, R10.9 - Unspecified abdominal pain ? T4 Free Direct Today - Acute sinusitis, unspecified, R10.9 - Unspecified abdominal pain ? Thyroid Stim Hormone (TSH) Today - Acute sinusitis, unspecified, R10.9 - Unspecified abdominal pain ? Fecal Fat, Qualitative Today - Acute sinusitis, unspecified, R10.9 - Unspecified abdominal pain ? CDIFF (PCR) Today - Acute sinusitis, unspecified, R10.9 - Unspecified abdominal pain ? ENTERIC PATHOGEN PANEL STOOL Today - Acute sinusitis, unspecified, K58.9 - Irritable bowel syndrome without diarrhea, R10.9 - Unspecified abdominal pain ? Pancreatic Elastase, Fecal Today - Acute sinusitis, unspecified, R10.9 - Unspecified abdominal pain ? Ferritin Today - Acute sinusitis, unspecified, R10.9 - Unspecified abdominal pain ? Hemoglobin A1c Today - Acute sinusitis, unspecified, R10.9 - Unspecified abdominal pain ? I have examined the patient and the H&P has been reviewed. There are no clinical changes since date of exam.
[2022-05-03 07:11] VITALS: BP 101/64; BP 111/59; PULSE 69; RESP 18; TEMP 36.3; O2SAT 96
--- NOTE | 2022-05-03 07:12 | OP.CCLET_ITS ---
05/03/2022 Janes Walton MD [address] [place] [address] [place] [address] Re : Upper GI endoscopy procedure for Lucio Wallace Dear Dr. Walton This procedure was performed on Tuesday, May 03, 2022. My impressions and recommendations are as follows: Impressions : - Z-line irregular, 38 cm from the incisors. Biopsied. - No gross lesions in the stomach. - Erythematous duodenopathy. Biopsied. Recommendations : - Discharge patient to home. - Resume previous diet. - Continue present medications. - Await pathology results. My findings are described in the full procedure note, which is enclosed. If I can be of further assistance, please feel free to contact me at . Sincerely, Juan Heaton, 05/03/2022 7:10:55 AM This report has been signed electronically.
--- NOTE | 2022-05-03 07:12 | OP.EGD_ITS ---
Patient Name: Lucio Wallace Procedure Date: 05/03/2022 6:17 AM Date of : 1995 Age: 26 Procedure: Upper GI endoscopy Indications: Epigastric abdominal pain, Functional Dyspepsia Providers: Juan Heaton DO Medicines: Monitored Anesthesia Care Patient Profile: This is a 26 year old female. Refer to note in patient chart for documentation of history and physical. Patient has symptoms of chronic epigastric abdominal pain, chronic dyspepsia and chronic nausea. Complications: No immediate complications. Procedure: Pre-Anesthesia Assessment: - Prior to the procedure, a History and Physical was performed, and patient medications and allergies were reviewed. The patient is competent. The risks and benefits of the procedure and the sedation options and risks were discussed with the patient. All questions were answered and informed consent was obtained. Patient identification and proposed procedure were verified by the physician. Mental Status Examination: alert and oriented. Airway Examination: normal oropharyngeal airway and neck mobility. Respiratory Examination: clear to auscultation. CV Examination: normal. Prophylactic Antibiotics: The patient does not require prophylactic antibiotics. Prior Anticoagulants: The patient has taken no previous anticoagulant or antiplatelet agents. ASA Grade Assessment: II - A patient with mild systemic disease. After reviewing the risks and benefits, the patient was deemed in satisfactory condition to undergo the procedure. The anesthesia plan was to use monitored anesthesia care (MAC). Immediately prior to administration of medications, the patient was re-assessed for adequacy to receive sedatives. The heart rate, respiratory rate, oxygen saturations, blood pressure, adequacy of pulmonary ventilation, and response to care were monitored throughout the procedure. The physical status of the patient was re-assessed after the procedure. After obtaining informed consent, the endoscope was passed under direct vision. Throughout the procedure, the patient's blood pressure, pulse, and oxygen saturations were monitored continuously. The Colonoscope was introduced through the mouth, and advanced to the second part of duodenum. The upper GI endoscopy was accomplished without difficulty. The patient tolerated the procedure well. Scope In: 6:42:06 AM Scope Out: 6:45:38 AM Total Procedure Duration Time 0 hours 3 minutes 32 seconds Findings: The Z-line was irregular and was found 38 cm from the incisors. Biopsies were taken with a cold forceps for histology. Verification of patient identification for the specimen was done. Estimated blood loss was minimal. No gross lesions were noted in the entire examined stomach. The cardia and gastric fundus were normal on retroflexion. Patchy mildly erythematous mucosa without active bleeding and with no stigmata of bleeding was found in the duodenal bulb, in the first portion of the duodenum and in the second portion of the duodenum. Biopsies were taken with a cold forceps for histology. Verification of patient identification for the specimen was done. Estimated blood loss was minimal. Impression: - Z-line irregular, 38 cm from the incisors. Biopsied. - No gross lesions in the stomach. - Erythematous duodenopathy. Biopsied. Recommendation: - Discharge patient to home. - Resume previous diet. - Continue present medications. - Await pathology results. Procedure Code(s): --- Professional --- 90356, Esophagogastroduodenoscopy, flexible, transoral; with biopsy, single or multiple CPT copyright 2017 [employer]. All rights reserved. The codes documented in this report are preliminary and upon drama professor review may be revised to meet current compliance requirements. Juan Heaton DO 05/03/2022 7:10:55 AM This report has been signed electronically. Number of Addenda: 0 Note Initiated On: 05/03/2022 6:17 AM
--- NOTE | 2022-05-03 07:15 | OP.COLON_ITS ---
Patient Name: Lucio Wallace Procedure Date: 05/03/2022 6:45 AM Date of : 1995 Age: 26 Procedure: Colonoscopy Indications: This is the patient's first colonoscopy, Generalized abdominal pain, Clinically significant diarrhea of unexplained origin Providers: Juan Heaton DO Medicines: Monitored Anesthesia Care Patient Profile: This is a 26 year old female. Refer to note in patient chart for documentation of history and physical. Patient has symptoms of chronic epigastric abdominal pain, chronic dyspepsia and chronic nausea. Last Colonoscopy: none. The patient's first colonoscopy is today. Complications: No immediate complications. Procedure: Pre-Anesthesia Assessment: - Prior to the procedure, a History and Physical was performed, and patient medications and allergies were reviewed. The patient is competent. The risks and benefits of the procedure and the sedation options and risks were discussed with the patient. All questions were answered and informed consent was obtained. Patient identification and proposed procedure were verified by the physician. Mental Status Examination: alert and oriented. Airway Examination: normal oropharyngeal airway and neck mobility. Respiratory Examination: clear to auscultation. CV Examination: normal. Prophylactic Antibiotics: The patient does not require prophylactic antibiotics. Prior Anticoagulants: The patient has taken no previous anticoagulant or antiplatelet agents. ASA Grade Assessment: II - A patient with mild systemic disease. After reviewing the risks and benefits, the patient was deemed in satisfactory condition to undergo the procedure. The anesthesia plan was to use monitored anesthesia care (MAC). Immediately prior to administration of medications, the patient was re-assessed for adequacy to receive sedatives. The heart rate, respiratory rate, oxygen saturations, blood pressure, adequacy of pulmonary ventilation, and response to care were monitored throughout the procedure. The physical status of the patient was re-assessed after the procedure. After I obtained informed consent, the scope was passed under direct vision. Throughout the procedure, the patient's blood pressure, pulse, and oxygen saturations were monitored continuously. The Colonoscope was introduced through the anus and advanced to the terminal ileum. The ileocecal valve, appendiceal orifice, and rectum were photographed. Scope In: 6:48:10 AM Scope Withdrawal Time 0 hours 10 minutes 46 seconds Scope Out: 7:04:01 AM Total Procedure Duration Time 0 hours 15 minutes 51 seconds Findings: The perianal and digital rectal examinations were normal. The colon (entire examined portion) appeared normal. Biopsies were taken with a cold forceps for histology. Verification of patient identification for the specimen was done. Estimated blood loss was minimal. A localized area of the terminal ileum was congested. Biopsies were taken with a cold forceps for histology. Verification of patient identification for the specimen was done. Estimated blood loss was minimal. Impression: - The entire examined colon is normal. Biopsied. - Congested mucosa in the terminal ileum. Biopsied. Recommendation: - Discharge patient to home. - Resume previous diet. - Continue present medications. - Await pathology results. - Repeat colonoscopy PRN for surveillance. Procedure Code(s): --- Professional --- 47549, Colonoscopy, flexible; with biopsy, single or multiple CPT copyright 2017 [employer]. All rights reserved. The codes documented in this report are preliminary and upon grey washer review may be revised to meet current compliance requirements. Juan Heaton DO 05/03/2022 7:15:01 AM This report has been signed electronically. Number of Addenda: 0 Note Initiated On: 05/03/2022 6:45 AM
--- NOTE | 2022-05-03 07:16 | OP.CCLET_ITS ---
05/03/2022 Janes Walton MD [address] [place] [address] [place] [address] Re : Colonoscopy procedure for Lucio Wallace Dear Dr. Waltno This procedure was performed on Tuesday, May 03, 2022. My impressions and recommendations are as follows: Impressions : - The entire examined colon is normal. Biopsied. - Congested mucosa in the terminal ileum. Biopsied. Recommendations : - Discharge patient to home. - Resume previous diet. - Continue present medications. - Await pathology results. - Repeat colonoscopy PRN for surveillance. My findings are described in the full procedure note, which is enclosed. If I can be of further assistance, please feel free to contact me at . Sincerely, Juan Heaton, 05/03/2022 7:15:01 AM This report has been signed electronically.
[2022-05-03 07:17] VITALS: BP 111/59; BP 99/65; PULSE 61; RESP 18; O2SAT 96
[2022-05-03 07:21] VITALS: BP 102/62; BP 111/59; PULSE 62; RESP 18; O2SAT 95
[2022-05-03 07:23] VITALS: BP 102/67; BP 111/59; PULSE 56; RESP 18; TEMP 36.3; O2SAT 96
[2022-05-03 07:40] VITALS: BP 111/59
== END 2022-05-03 07:58 | disposition home or self-care (01) ==
LOC: EN 05:25 → AC 05:26
PROVIDERS: Anesthesiology; PCP Internal Medicine; Referring Provider Internal Medicine; Visit Provider Internal Medicine Gastroenterology
PROC: 0DJD8ZZ Inspection of Lower Intestinal Tract, Via Natural or Artificial Opening Endoscopic (ICD-10-PCS; CPT 45378; principal; 2022-05-03 06:25)
DX: K31.89 Other diseases of stomach and duodenum (principal); K63.89 Other specified diseases of intestine; K90.0 Celiac disease; E66.9 Obesity, unspecified; Z68.34 Body mass index [BMI] 34.0-34.9, adult
CPT/HCPCS: 45380; 43239; 81025; 88305; 88313; J7120; J2405

== ENCOUNTER → 2022-09-15 | Outpatient (CLI) | payer BC, SELFPAY ==
[2022-09-20 00:07] LABS: Pancreatic Elastase, Fecal 221 (>200)
[2022-09-25 20:08] LABS: Calprotectin, Stool 8 ug/g (0-120); Fats, Neutral Normal (.); Fats, Total Increased (.)
== END | disposition home or self-care (01) ==
LOC: LABSPEC 07:54
PROVIDERS: PCP Internal Medicine; Referring Provider Internal Medicine Gastroenterology; Visit Provider Internal Medicine Gastroenterology
DX: K86.81 Exocrine pancreatic insufficiency (principal); K58.9 Irritable bowel syndrome, unspecified
CPT/HCPCS: 82653; 82705; 83630; 83993

== ENCOUNTER → 2022-10-19 | Outpatient (CLI) | payer BC, SELFPAY ==
[2022-10-19 16:38] LABS: Absolute Lymphocyte Count 1.96 X10^3/uL (0.83-4.51); Absolute Neutrophil Count 3.7 X10^3/uL (2.0-7.7); Basophil# 0.05 X10^3/uL; Basophil% 0.8 % (0-1); Eosinophil# 0.14 X10^3/uL; Eosinophils% 2.2 % (0-5); Hematocrit 43.1 % (37-47); Lymphocyte # 1.96 X10^3/ul (0.83-4.51); Lymphocyte % 30.1 % (19-41); Mean Corp Hgb Conc 32.5 g/dL (32-36); Mean Corpuscular Hgb 28.1 pg (27.0-32.0); Mean Corpuscular Volume 86.4 fL (81-99); Mean Platelet Vol. 9.4 fl (6.2-12.0); Monocyte# 0.61 X10^3/uL; Monocyte% 9.4 % (0-10); NRBC Flagged by Analyzer 0 % (0-5); Neutrophil # 3.74 X10^3/uL (2.7-7.7); Neutrophil % 57.3 % (47-70); Platelet Count 290 K/mm3 (150-450); RBC Distribution Width CV 13.2 % (11.6-14.6); RBC Distribution Width SD 41.1 fl (35.1-43.9); Red Blood Count 4.99 M/mm3 (4.2-5.4); White Blood Count 6.5 K/mm3 (4.4-11.0)
[2022-10-19 16:56] LABS: AST(SGOT) 14 U/L (15-37); Alanine Aminotransfer ALT/SGPT 19 U/L (13-56); Albumin, Serum 3.7 g/dL (3.2-5.0); Alkaline Phosphatase 29 U/L (45-117); Anion Gap 6 (5-15); BUN 16 mg/dL (7-18); BUN/Creat Ratio 18.4 RATIO (10-20); Calcium,Total 9.4 mg/dL (8.5-10.1); Chloride 105 mmol/L (98-107); Cholesterol 210 mg/dL (200); Creatinine, Serum 0.87 mg/dL (0.55-1.02); EST Glomerular Filtration Rate 82 mL/min (>60); Est Glom Filt Rate - Afr Amer 99 mL/min (>60); Globulin 3.6 g/dL (2.2-4.2); Glucose 82 mg/dL (74-106); High Density Lipoprotein 41 mg/dL; Potassium 3.8 mmol/L (3.5-5.1); Protein, Total 7.3 g/dL (6.4-8.2); Sodium Level 137 mmol/L (136-145); Triglycerides 207 mg/dL; Very Low Density Lipoprotein 41 mg/dL (5-40)
== END | disposition home or self-care (01) ==
LOC: BIMLAB 15:20
PROVIDERS: PCP Internal Medicine; Referring Provider Internal Medicine; Visit Provider Internal Medicine
DX: Z00.00 Encounter for general adult medical examination without abnormal findings (principal)
CPT/HCPCS: 36415; 80053; 80061; 85025

== ENCOUNTER → 2022-10-24 | Outpatient (CLI) | payer BC, SELFPAY ==
--- NOTE | 2022-10-24 12:27 | US_ITS ---
STUDY: THYROID ULTRASOUND REASON FOR EXAM: Female, 27 years old. Goiter TECHNIQUE: Ultrasound evaluation of the thyroid was performed with real-time and static yarbrough-scale imaging. COMPARISON: Sep 22 2015 FINDINGS: RIGHT LOBE: The right lobe of the thyroid gland measures 4.7 x 1.4 x 1.6 cm. There is a homogeneous echotexture. There are no demonstrated solid, cystic or complex lesions. LEFT LOBE: The left lobe of the thyroid gland measures 4.7 1.5, 1.3 cm. There is a homogeneous echotexture. There are no demonstrated solid, cystic or complex lesions. ISTHMUS: The isthmus measures 3 . The regional lymph nodes are normal. No significant change since prior exam US/Thyroid IMPRESSION: Borderline thyromegaly. No evidence for focal mass.. Electronically Signed: Allen Umaña MD at 21:46 EDT ,
== END | disposition home or self-care (01) ==
LOC: US 12:27
PROVIDERS: PCP Internal Medicine; Referring Provider Internal Medicine; Visit Provider Internal Medicine
DX: E04.9 Nontoxic goiter, unspecified (principal)
CPT/HCPCS: 76536

== ENCOUNTER 2023-01-12 08:00 | Outpatient (RCR) | payer BC, SELFPAY ==
--- NOTE | 2022-12-08 14:11 | HP.PTEVAL ---
Patient's Visit Information Visit Information Visit Information: SYLVESTER CARDENAS is a 27 year old F referred to Physical Therapy by Dr. Keanu Pelaez MD with a diagnosis of L shoulder pain. Date of Evaluation: 12/08/22 Physical Therapist: Harish Drummond DPT Visit Plan Frequency: 1x/Week Duration: 6 Weeks Plan: Start with UT, periscapular strengthening. Stability of clavicle. Subjective Subjective: Pt. is here today for her initial evaluation with diagnosis of L shoulder pain. pt. reports having pain for 1.5 years, no mechanism of injury. Random increase NW symptoms. Pt. denies N/T. Pt. has been seeing a chiro on and off during this time with minimal success. Pt. is able to complete all of her cross fit activities with minimal issues, except she does have some symptoms with doing her shoulder pass throughs and with hyper shoulder H abduction. Pt. feels most of her symptoms in her clavicle close to the sternum. She reports the most pain with taking her shirts and sports bras off in cross body to over head movements. Pt. is hopeful to reduce symptoms in order to compelte all of her UB dressing without increase in symptoms. Pain L anterior shoulder: Pain Intensity (Out of 10): 0 Pain Intensity Range: 0 and 2 L clavicle: Pain Intensity (Out of 10): 0 Pain Intensity Range: 0 and 4 Objective Objective: POSTURE: Pt. has rounded shoulder and fwrd flexed posture. Pt. is able to correct with VCing, difficulty to maintain. PALPATION: Pt. has some mild tenderness at anterior shoulder, but had more pain along clavicle, worse along medial 1/3. NEURO: normal sensation and normal DTR of BUEs. ROM: Pt. had full motion of BUEs without increase in symptoms. Pt. has some reports of mild tightness at end range H abd and full flexion. Pt. did has some pain with full H add to pulling over head, again at clavicle region. MMT: Pt. had 5/5 throughout B shoulders. Pt. had no pain with MMT this date. Balance/Special Test Scores Quick DASH Score: 15.9075 Goals Goal 1:: LTG: Pt. to have full L shoulder ROM without increase in symptoms. Goal Time Frame: 4-6 Weeks Goal 2:: LTG: Pt. to be able to complete all upper body dressing/undressing without increase in L shoulder pain. Goal Time Frame: 4-6 Weeks Goal 3:: LTG: Pt. to have no pain with palpation of L clavicle. Goal Time Frame: 4-6 Weeks Goal 4:: LTG: pt. to have 5/5 strength throughout periscapular musculature. Goal Time Frame: 4-6 Weeks Rehabilitation Potential Physical Therapy Diagnosis: Pt. has sign and symptoms consistent with L shoulder pain. Pt. has more more in her clavicle region this date. I did some strapping which seemed to help. Due to this I would like her to work on some stability exercises of her shoulder girdle to aid with reducing symptoms with endrange movements. Rehabilitation Potential: Good Anticipated Interventions Patient/Client Instruction: Educate patient on: Condition, Plan of Care, Risk Factors and Benefits of Fitness Program For the Purpose of:: To facilitate caregiver knowledge, To improve self management, To prevent re-injury, To improve ability to perform tasks related to life management and To improve tolerance to ADL's Therapeutic Exercise to Include: Strength training, Power training, Body mechanics and Postural training For the Purpose of:: To decrease pain, To increase ROM, To improve nutrient delivery to tissue, To increase oxygenation perfusion and To improve muscle performance and motor function Text: Thank you for the opportunity to evaluate your patient. For Medicare and Medicare HMO plans, please review the plan of care and approve it. It will need to be FAXED BACK to us at [phone] for Medicare purposes. For Medicare only, by signing this I certify the plan of care. Please let me know if there are questions or concerns regarding this plan of care. Physician Signature: Date:
== END 2023-01-12 19:00 | disposition home or self-care (01) ==
LOC: PT 08:00
PROVIDERS: PCP Internal Medicine; Referring Provider Orthopaedic Surgery Sports Medicine; Visit Provider Orthopaedic Surgery Sports Medicine
DX: M25.512 Pain in left shoulder (principal)
CPT/HCPCS: 97161

== ENCOUNTER → 2023-03-09 | Outpatient (CLI) | payer BC, SELFPAY ==
--- NOTE | 2023-03-09 06:47 | MRI_ITS ---
STUDY: MRI LEFT SHOULDER REASON FOR EXAM: Female, 27 years old. Pain. Upper left shoulder/rib/collarbone pain for 1.5 years. TECHNIQUE: Standardized fat and water weighted pulse sequences were obtained in all 3 orthogonal planes. COMPARISON: Left shoulder radiographs dated 11/24/2022. FINDINGS: Normal supraspinatus tendon. Normal infraspinatus tendon. Normal subscapularis tendon. Normal teres minor tendon. Normal supraspinatus muscle. Normal infraspinatus muscle. Normal subscapularis muscle. Normal teres minor muscle. Normal glenohumeral articulation. Intact humeral head and visualized proximal humerus. Normal biceps labral complex. Normal intracapsular long biceps tendon. Normal labrum. Normal capsulo-ligamentous complex. Normal rotator interval. Normal acromioclavicular articulation. There is a Type II morphology (curved), with a neutral orientation. There is no subacromial-subdeltoid bursal fluid. Normal visualized coracohumeral and coracoacromial ligaments. Normal quadrilateral space. Normal axillary space. Normal deltoid muscle. Normal trapezius muscle. MRI/Upper Ext Joint Only(Routine) IMPRESSION: No rotator cuff tear or discrete labral tear. Electronically Signed: Abdelrahman Mo MD at 9:56 EDT ,
== END | disposition home or self-care (01) ==
LOC: MRI 06:32
PROVIDERS: PCP Internal Medicine; Referring Provider Orthopaedic Surgery Sports Medicine; Visit Provider Orthopaedic Surgery Sports Medicine
DX: M25.512 Pain in left shoulder (principal)
CPT/HCPCS: 73221

== ENCOUNTER → 2023-09-14 | Outpatient (CLI) | payer BC, SELFPAY ==
[2023-09-14 15:35] LABS: Absolute Lymphocyte Count 2.29 X10^3/uL (0.83-4.51); Absolute Neutrophil Count 3.5 X10^3/uL (2.0-7.7); Basophil# 0.05 X10^3/uL; Basophil% 0.8 % (0-1); Eosinophil# 0.14 X10^3/uL; Eosinophils% 2.2 % (0-5); Hematocrit 44.2 % (37-47); Hemoglobin 14.3 g/dL (12.0-15.0); Lymphocyte # 2.29 X10^3/ul (0.83-4.51); Lymphocyte % 35.2 % (19-41); Mean Corp Hgb Conc 32.4 g/dL (32-36); Mean Corpuscular Hgb 27.8 pg (27.0-32.0); Mean Platelet Vol. 9.7 fl (6.2-12.0); Monocyte# 0.49 X10^3/uL; Monocyte% 7.5 % (0-10); NRBC Flagged by Analyzer 0 % (0-5); Neutrophil # 3.53 X10^3/uL (2.7-7.7); Neutrophil % 54.1 % (47-70); Platelet Count 301 K/mm3 (150-450); RBC Distribution Width CV 13.2 % (11.6-14.6); RBC Distribution Width SD 41.3 fl (35.1-43.9); Red Blood Count 5.14 M/mm3 (4.2-5.4); White Blood Count 6.5 K/mm3 (4.4-11.0)
[2023-09-14 15:44] LABS: Internal QC Validated? YES +Cl - CLEAR BKGD; Pregnancy, Serum, hCG Quali. NEGATIVE Negative
[2023-09-14 15:53] LABS: ALB/GLOB Ratio 1.1 RATIO (0.9-2.4); AST(SGOT) 12 U/L (15-37); Alanine Aminotransfer ALT/SGPT 19 U/L (13-56); Albumin, Serum 3.9 g/dL (3.2-5.0); Alkaline Phosphatase 20 U/L (45-117); Anion Gap 6 (5-15); BUN 12 mg/dL (7-18); BUN/Creat Ratio 15.1 RATIO (10-20); Calcium,Total 9.3 mg/dL (8.5-10.1); Chloride 106 mmol/L (98-107); Cholesterol 220 mg/dL (200); Creatinine, Serum 0.79 mg/dL (0.55-1.02); EST Glomerular Filtration Rate 90 mL/min (>60); Est Glom Filt Rate - Afr Amer 109 mL/min (>60); Globulin 3.5 g/dL (2.2-4.2); Glucose 82 mg/dL (74-106); High Density Lipoprotein 46 mg/dL; Potassium 4.1 mmol/L (3.5-5.1); Protein, Total 7.4 g/dL (6.4-8.2); Sodium Level 138 mmol/L (136-145); Triglycerides 90 mg/dL; Very Low Density Lipoprotein 18 mg/dL (5-40)
== END | disposition home or self-care (01) ==
LOC: BIMLAB 11:33
PROVIDERS: PCP Internal Medicine; Visit Provider Internal Medicine
DX: Z00.00 Encounter for general adult medical examination without abnormal findings (principal); J32.9 Chronic sinusitis, unspecified; N91.2 Amenorrhea, unspecified
CPT/HCPCS: 36415; 80053; 80061; 84703; 85025

== ENCOUNTER → 2023-09-19 | Outpatient (CLI) | payer BC, SELFPAY ==
[2023-09-19 15:05] LABS: HIV - WCH Non-Reactive (Nonreactive); Hepatitis C Antibody Non-Reactive (Nonreactive); Syphilis Antibodies Non-reactive
[2023-09-21 06:09] LABS: HSV 1 IgG < 0.91 index (0.00-0.90); HSV 2 IgG < 0.91 index (0.00-0.90)
[2023-09-22 12:09] LABS: Chlamydia By Nucleic Acid AMP Negative (Negative); Gonococcus By Nucleic Acid AMP Negative (Negative)
== END | disposition home or self-care (01) ==
LOC: PAVLAB 13:44
PROVIDERS: PCP Internal Medicine; Referring Provider Nurse Practitioner Women's Health; Visit Provider Nurse Practitioner Women's Health
DX: Z20.2 Contact with and (suspected) exposure to infections with a predominantly sexual mode of transmission (principal)
CPT/HCPCS: 36415; 86695; 86696; 86703; 86780; 86803; 87491; 87591

== ENCOUNTER → 2023-11-20 | Outpatient (CLI) | payer BC, SELFPAY ==
[2023-11-20 10:21] LABS: Absolute Lymphocyte Count 1.99 X10^3/uL (0.83-4.51); Absolute Neutrophil Count 3.5 X10^3/uL (2.0-7.7); Basophil# 0.04 X10^3/uL; Basophil% 0.7 % (0-1); Eosinophil# 0.16 X10^3/uL; Eosinophils% 2.6 % (0-5); Hematocrit 44.5 % (37-47); Hemoglobin 14.9 g/dL (12.0-15.0); Lymphocyte # 1.99 X10^3/ul (0.83-4.51); Lymphocyte % 32.4 % (19-41); Mean Corp Hgb Conc 33.5 g/dL (32-36); Mean Corpuscular Hgb 28.3 pg (27.0-32.0); Mean Corpuscular Volume 84.6 fL (81-99); Mean Platelet Vol. 9.5 fl (6.2-12.0); Monocyte# 0.45 X10^3/uL; Monocyte% 7.3 % (0-10); NRBC Flagged by Analyzer 0 % (0-5); Neutrophil % 56.8 % (47-70); Platelet Count 312 K/mm3 (150-450); RBC Distribution Width CV 13.8 % (11.6-14.6); RBC Distribution Width SD 42.5 fl (35.1-43.9); Red Blood Count 5.26 M/mm3 (4.2-5.4); White Blood Count 6.2 K/mm3 (4.4-11.0)
[2023-11-20 10:25] LABS: Erythrocyte Sedimentation Rate 2 mm/hr (0-30)
[2023-11-20 10:57] LABS: AST(SGOT) 13 U/L (15-37); Alanine Aminotransfer ALT/SGPT 17 U/L (13-56); Albumin, Serum 3.7 g/dL (3.2-5.0); Alkaline Phosphatase 24 U/L (45-117); Anion Gap 6 (5-15); BUN 10 mg/dL (7-18); BUN/Creat Ratio 12.5 RATIO (10-20); CRP < 2.90 mg/L (0.0-3.0); Calcium,Total 9.1 mg/dL (8.5-10.1); Chloride 107 mmol/L (98-107); EST Glomerular Filtration Rate 89 mL/min (>60); Est Glom Filt Rate - Afr Amer 108 mL/min (>60); Ferritin 60 ng/mL (8-252); Globulin 3.6 g/dL (2.2-4.2); Glucose 80 mg/dL (74-106); Protein, Total 7.3 g/dL (6.4-8.2); Sodium Level 139 mmol/L (136-145)
[2023-11-21 16:10] LABS: Cytoplasmic Ab (C-ANCA) <1:20 titer (Neg:<1:20); Endomysial Antibody IgA Negative (Negative); Immunoglobulin A 66 mg/dL (87-352); Perinuclear Ab (P-ANCA) <1:20 titer (Neg:<1:20); t-Transglutaminase IgA <2 U/mL (0-3)
[2023-11-23 16:10] LABS: Beef <0.10 kU/L (Class 0); Chocolate <0.10 kU/L (Class 0); Codfish <0.10 kU/L (Class 0); Corn <0.10 kU/L (Class 0); Egg, Whole <0.10 kU/L (Class 0); Milk (Cow) <0.10 kU/L (Class 0); Mussels <0.10 kU/L (Class 0); Peanut <0.10 kU/L (Class 0); Pork <0.10 kU/L (Class 0); Salmon <0.10 kU/L (Class 0); Shrimp <0.10 kU/L (Class 0); Soybean <0.10 kU/L (Class 0); Tuna <0.10 kU/L (Class 0); Wheat <0.10 kU/L (Class 0)
== END | disposition home or self-care (01) ==
LOC: LAB 08:43
PROVIDERS: PCP Internal Medicine; Referring Provider Internal Medicine Gastroenterology; Visit Provider Internal Medicine Gastroenterology
DX: K90.0 Celiac disease (principal); R10.9 Unspecified abdominal pain
CPT/HCPCS: 36415; 80053; 82728; 82784; 83516; 85025; 85652; 86003; 86005; 86140; 86255; 86256

== ENCOUNTER → 2023-12-21 | Outpatient (CLI) | payer BC, SELFPAY ==
--- NOTE | 2023-12-21 10:02 | NM_ITS ---
EXAM: NM HEPATOBILIARY SCAN CLINICAL INDICATION: abdominal pain TECHNIQUE: 5.5 mCi of Technetium 99m choletec was intravenously administered and static images were obtained. Gallbladder ejection fraction performed with intravenous administration of CCK. COMPARISON: No relevant prior studies available. FINDINGS: LIVER: Normal. There is homogeneous uptake and excretion of the radiopharmaceutical by the liver. There is no abnormal hyperemia along the gallbladder fossa. BILE DUCTS: Normal. Normal radiopharmaceutical activity. GALLBLADDER: Normal. Normal radiopharmaceutical activity. STOMACH AND BOWEL: Normal. Normal radiopharmaceutical activity. Gallbladder ejection fraction at 30 minutes is only 14% which is less than normal. NM/Hepatobilliary Img w/Pharm Int IMPRESSION: Patent cystic and common bile ducts. Decreased gallbladder ejection fraction indicating gallbladder dyskinesia. Electronically Signed: Harvey Bridges MD at 16:12 EDT ,
== END | disposition home or self-care (01) ==
LOC: NM 09:58
PROVIDERS: PCP Internal Medicine; Referring Provider Internal Medicine Gastroenterology; Visit Provider Internal Medicine Gastroenterology
DX: K90.0 Celiac disease (principal); R10.9 Unspecified abdominal pain
CPT/HCPCS: 78227; A9537; J2805

== ENCOUNTER → 2023-12-24 | Outpatient (CLI) | payer BC, SELFPAY ==
--- NOTE | 2023-12-24 10:33 | NM_ITS ---
CLINICAL: 28-year-old female with history of abdominal bloating. SEMI-SOLID PHASE 99m Tc SULFUR COLLOID GASTRIC EMPTYING STUDY COMPARISON: None available FINDINGS: The patient was administered 1.1 mCi of 99m Tc sulfur colloid mixed with oatmeal and consumed per os. Image acquisitions in the anterior-posterior projections were obtained for 60 minutes. There is prompt visualization of the stomach. There is no gastroesophageal reflux identified. The T ? raw data emptying was calculated to be 50.92 minutes, (Normal: 12-56 minutes). NM/Gastric Emptying Study IMPRESSION: 1. NORMAL 99m Tc sulfur colloid semi-solid phase (oatmeal) gastric emptying imaging examination. A. There is normal and preserved semi-solid phase gastric emptying compared to normal controls. (Jax et al, J Nucl Med Tech 38: 186, 2010). Electronically Signed: Jared Sevilla DO at 8:40 EDT ,
== END | disposition home or self-care (01) ==
LOC: NM 10:31
PROVIDERS: PCP Internal Medicine; Referring Provider Internal Medicine Gastroenterology; Visit Provider Internal Medicine Gastroenterology
DX: K90.0 Celiac disease (principal); R14.0 Abdominal distension (gaseous)
CPT/HCPCS: 78264; A9541

== ENCOUNTER → 2024-09-15 | Outpatient (CLI) | payer BC, SELFPAY ==
[2024-09-15 12:39] LABS: Absolute Lymphocyte Count 1.92 X10^3/uL (0.83-4.51); Basophil# 0.05 X10^3/uL; Basophil% 0.9 % (0-1); Eosinophil# 0.14 X10^3/uL; Eosinophils% 2.5 % (0-5); Hematocrit 41.6 % (37-47); Hemoglobin 13.9 g/dL (12.0-15.0); Lymphocyte # 1.92 X10^3/ul (0.83-4.51); Lymphocyte % 34.2 % (19-41); Mean Corp Hgb Conc 33.4 g/dL (32-36); Mean Corpuscular Hgb 28.2 pg (27.0-32.0); Mean Corpuscular Volume 84.4 fL (81-99); Mean Platelet Vol. 9.6 fl (6.2-12.0); Monocyte# 0.45 X10^3/uL; NRBC Flagged by Analyzer 0 % (0-5); Neutrophil # 3.04 X10^3/uL (2.7-7.7); Neutrophil % 54.2 % (47-70); Platelet Count 310 K/mm3 (150-450); RBC Distribution Width CV 13.4 % (11.6-14.6); RBC Distribution Width SD 41.6 fl (35.1-43.9); Red Blood Count 4.93 M/mm3 (4.2-5.4); White Blood Count 5.6 K/mm3 (4.4-11.0)
[2024-09-15 12:51] LABS: ALB/GLOB Ratio 1.6 RATIO (0.9-2.4); AST(SGOT) 17 U/L (<=31); Alanine Aminotransfer ALT/SGPT 14 U/L (<=34); Albumin, Serum 4.2 g/dL (3.5-5.0); Alkaline Phosphatase 21 U/L (35-104); Anion Gap 10 (5-15); BUN 11 mg/dL (4-19); BUN/Creat Ratio 13.8 RATIO (10-20); Calcium,Total 9.3 mg/dL (7.6-11.0); Carbon Dioxide 23.1 mmol/L (21.0-32.0); Chloride 106 mmol/L (98-108); Cholesterol 229 mg/dL (<=200); EST Glomerular Filtration Rate 100 (>60); Globulin 2.7 g/dL (2.2-4.2); Glucose 86 mg/dL (70-99); High Density Lipoprotein 48 mg/dL; Low Density Lipoprotein Calc. 157 mg/dL; Potassium 4.3 mmol/L (3.3-5.1); Protein, Total 6.9 g/dL (5.9-8.4); Sodium Level 140 mmol/L (133-145); Total Bilirubin 0.65 mg/dL (0.00-1.30); Triglycerides 122 mg/dL; Very Low Density Lipoprotein 24 mg/dL (5-40); cholesterol:hdl ratio screen 4.78
== END | disposition home or self-care (01) ==
LOC: BIMLAB 09:23
PROVIDERS: PCP Internal Medicine; Referring Provider Internal Medicine; Visit Provider Internal Medicine
DX: Z00.00 Encounter for general adult medical examination without abnormal findings (principal)
CPT/HCPCS: 36415; 80053; 80061; 85025

== ENCOUNTER → 2024-09-26 | Outpatient (CLI) | payer BC, SELFPAY | END | disposition home or self-care (01) | LOC: LABSPEC 10:51 | PROVIDERS: PCP Internal Medicine; Referring Provider Obstetrics & Gynecology; Visit Provider Obstetrics & Gynecology | DX: Z12.4 Encounter for screening for malignant neoplasm of cervix (principal) | CPT/HCPCS: 87624; 88175; G0145 ==

== ENCOUNTER → 2024-12-11 | Outpatient (CLI) | payer BC, SELFPAY ==
--- NOTE | 2024-12-11 16:34 | US_ITS ---
PROCEDURE: TRANSVAGINAL W/PREG US 12/11/2024 REASON FOR EXAM: PELVIC PAIN IN TECHNIQUE: TRANSVAGINAL W/PREG US COMPARISON: None FINDINGS: Comments: LMP: October 31, 2024. Number of Gestational Sacs: 1 Gestational Sac Shape: On gated. Heart Rate: Not detected (average) Yolk Sac: Present and unremarkable. Placenta: Presently not well-visualized Amniotic Fluid Volume: Subjectively normal for gestational age. Uterine Abnormalities: Maternal uterus is unremarkable. Ovaries / Adnexa: 2 point 2.1 cm right corpus luteum cyst. DIMENSIONS: Parameter Measurement / EGA Gestational Sac: 9 mm/5 weeks and 5 days Yolk Sac: 2 mm/ ESTIMATED GESTATIONAL AGE: By Ultrasound: 5 weeks and 5 days By LMP: 5 weeks and 6 days ESTIMATED DATE OF DELIVERY: By Ultrasound: August 08, 2025 By LMP: August 07, 2025 US/Transvaginal w/Preg US IMPRESSION: Intrauterine gestation with a mean gestational age of 5 weeks and 5 days. No fetus is seen at this time. Follow-up recommended. Reading Location: [id number]
== END | disposition home or self-care (01) ==
PROVIDERS: PCP Internal Medicine; Referring Provider Registered Nurse; Visit Provider Registered Nurse
DX: O26.899 Other specified pregnancy related conditions, unspecified trimester (principal); R10.2 Pelvic and perineal pain; Z3A.00 Weeks of gestation of pregnancy not specified
CPT/HCPCS: 76817

== ENCOUNTER → 2024-12-26 | Outpatient (CLI) | payer BC, SELFPAY ==
[2024-12-29 20:08] LABS: Chlamydia By Nucleic Acid AMP Negative (Negative); Gonococcus By Nucleic Acid AMP Negative (Negative)
== END | disposition home or self-care (01) ==
LOC: LABSPEC 15:44
PROVIDERS: PCP Internal Medicine; Referring Provider Advanced Practice Midwife; Visit Provider Advanced Practice Midwife
DX: O09.90 Supervision of high risk pregnancy, unspecified, unspecified trimester (principal); Z3A.00 Weeks of gestation of pregnancy not specified
CPT/HCPCS: 87086; 87491; 87591

== ENCOUNTER → 2025-01-14 | Outpatient (CLI) | payer BC, SELFPAY ==
[2025-01-14 17:14] LABS: Hematocrit 38.7 % (37-47); Hemoglobin 13.3 g/dL (12.0-15.0); Immature Granulocytes Count 0.020 X10^3/uL (0.0-0.0); Mean Corp Hgb Conc 34.4 g/dL (32-36); Mean Corpuscular Volume 82.9 fL (81-99); Mean Platelet Vol. 9.1 fl (6.2-12.0); NRBC Flagged by Analyzer 0 % (0-5); Platelet Count 262 K/mm3 (150-450); RBC Distribution Width CV 13.8 % (11.6-14.6); RBC Distribution Width SD 41.2 fl (35.1-43.9); Red Blood Count 4.67 M/mm3 (4.2-5.4); White Blood Count 8.4 K/mm3 (4.4-11.0)
[2025-01-14 19:25] LABS: HIV Nonreactive (Nonreactive); Hepatitis B Surface Antigen Nonreactive (Nonreactive); Hepatitis C Antibody Nonreactive (Nonreactive); Syphilis Antibodies Nonreactive (Nonreactive)
== END | disposition home or self-care (01) ==
LOC: LAB 16:51
PROVIDERS: PCP Internal Medicine; Referring Provider Advanced Practice Midwife; Visit Provider Advanced Practice Midwife
DX: O09.90 Supervision of high risk pregnancy, unspecified, unspecified trimester (principal); Z3A.00 Weeks of gestation of pregnancy not specified
CPT/HCPCS: 36415; 83036; 85025; 86703; 86762; 86780; 86803; 86850; 86900; 86901; 87340

== ENCOUNTER → 2025-01-15 | Outpatient (CLI) | payer BC, SELFPAY | END | disposition home or self-care (01) | LOC: BWCLAB 12:19 | PROVIDERS: Advanced Practice Midwife; PCP Internal Medicine; Referring Provider Registered Nurse; Visit Provider Registered Nurse | DX: O09.90 Supervision of high risk pregnancy, unspecified, unspecified trimester (principal); Z3A.00 Weeks of gestation of pregnancy not specified | CPT/HCPCS: 36415 ==